=== PATIENT | female | born 1945 | race Caucasian/White ===

== ENCOUNTER → 2017-03-12 | Outpatient (CLI) | payer MEDICARE, OTHER ==
[2017-03-12 12:12] LABS: BASO % 0.9 % (0.0-1.0); EOS # 0.1 K/mm3 (0.0-0.50); EOS % 1.5 % (0.0-3.0); LARGE UNSTAINED CELL # 0.1 K/mm3 (0.0-0.4); LARGE UNSTAINED CELL % 2.2 % (0.0-4.0); LYMPH # 1.3 K/mm3 (1.5-4.5); LYMPH % 26.1 % (24.0-44.0); MEAN CORPUSCULAR HEMOGLOBIN 34.9 pg (27.0-33.0); MEAN CORPUSCULAR HGB CONC 32.3 g/dl (32.0-36.5); MONO # 0.2 K/mm3 (0.0-0.8); MONO % 5.3 % (0.0-5.0); NEUTROPHILS # 2.9 K/mm3 (1.8-7.7); PLATELET COUNT, AUTOMATED 112 k/mm3 (150-450); RED CELL DISTRIBUTION WIDTH 12.1 % (11.5-14.5); WHITE BLOOD COUNT 4.5 K/mm3 (4.0-10.0)
[2017-03-12 15:13] LABS: ALBUMIN 3.3 GM/DL (3.2-5.2); ALBUMIN/GLOBULIN RATIO 0.89 (1.00-1.93); ALKALINE PHOSPHATASE 89 U/L (45-117); ALT/SGPT 43 U/L (12-78); ANION GAP 7 MEQ/L (8-16); AST/SGOT 60 U/L (15-37); BILIRUBIN,TOTAL 0.9 MG/DL (0.2-1.0); BLOOD UREA NITROGEN 12 MG/DL (7-18); CALCIUM LEVEL 9.5 MG/DL (8.8-10.2); CARBON DIOXIDE LEVEL 30 MEQ/L (21-32); CHLORIDE LEVEL 104 MEQ/L (98-107); CHOLESTEROL LEVEL 250 MG/DL (<200); CREATININE FOR GFR 0.77 MG/DL (0.55-1.02); GLOMERULAR FILTRATION RATE > 60.0 (>45); GLUCOSE, FASTING 95 MG/DL (80-110); POTASSIUM SERUM 4.5 MEQ/L (3.5-5.1); SODIUM LEVEL 141 MEQ/L (136-145); T UPTAKE 35 % (30-39); THYROXINE (T4) 9.6 UG/DL (4.5-12.0); TRIGLYCERIDES LEVEL 76 MG/DL (<150)
== END ==
LOC: M WUC 08:42
PROVIDERS: ATTEND Psychiatry & Neurology Psychiatry
DX: Z79.899 Other long term (current) drug therapy (principal); F39 Unspecified mood [affective] disorder

== ENCOUNTER → 2017-05-15 | Outpatient (REF) | payer MEDICARE, OTHER ==
[~2017-05-15] MED LIST: AMBI10TA PO; CHLO125TA; CHLO25TA PO; DULO1CAP2; DULO1CAP2 PO; ESCI10TA2; FOLI1TAB4 PO; LOMO2.5T PO; LORA0.5T11; LORA0.5T11 PO; OMEP20CA3; OMEP40CA2; OMEP40CA2 PO; ONDA4TAB5; OXAZ10CA3 PO; THIA100TA PO; TRAZ50TA11; TRAZ50TA11 PO; VAGI10TA PV; ZOFR20TA PO; ZOLP10TA2
[2017-05-15 18:50] LABS: INR 1.02
[2017-05-15 18:55] LABS: FOLATE 6.1 NG/ML
== END ==
LOC: M LAB REF 12:06
PROVIDERS: ATTEND Internal Medicine
DX: Z98.84 Bariatric surgery status (principal); R74.8 Abnormal levels of other serum enzymes; R42 Dizziness and giddiness; Z79.01 Long term (current) use of anticoagulants

== ENCOUNTER 2017-06-14 09:51 | Inpatient (IN) | payer MEDICARE, OTHER ==
[~2017-06-14] VITALS: Ht 167.6 cm; Wt 89.1 kg
[2017-06-14] MEDS ORDERED: LORA0.5T11 (10:06)
[2017-06-14] MEDS ORDERED: CHLO125TA (10:06)
[2017-06-14] MEDS ORDERED: TRAZ50TA11 (10:06)
[2017-06-14] MEDS ORDERED: OMEP40CA2 (10:06)
[2017-06-14] MEDS ORDERED: OMEP20CA3 (10:06)
[2017-06-14] MEDS ORDERED: ONDA4TAB5 (10:06)
[2017-06-14] MEDS ORDERED: DULO1CAP2 (10:06)
[2017-06-14] MEDS ORDERED: ZOLP10TA2 (10:06)
[2017-06-14] MEDS ORDERED: ESCI10TA2 (10:06)
[2017-06-14] MEDS ORDERED: NS 500 ML IV ONE ×2 (10:45→11:45)
[2017-06-14 10:55] LABS: BASO % 0.9 % (0.0-1.0); EOS % 0.7 % (0.0-3.0); IMMATURE GRANULOCYTE % 0.2 % (0-0); LYMPH # 1.1 10^3/uL (1.5-4.5); LYMPH % 23.6 % (24.0-44.0); MEAN CORPUSCULAR HEMOGLOBIN 35.3 pg (27.0-33.0); MEAN CORPUSCULAR HGB CONC 33.8 g/dl (32.0-36.5); MEAN CORPUSCULAR VOLUME 104.3 fl (80.0-96.0); MONO # 0.4 10^3/uL (0.0-0.8); NEUTROPHILS % 66.6 % (36.0-66.0); RED CELL DISTRIBUTION WIDTH 12.7 % (11.5-14.5); WHITE BLOOD COUNT 4.5 10^3/uL (4.0-10.0)
--- NOTE | 2017-06-14 11:03 | REP ---
CT Head without contrast HISTORY: Syncope COMPARISON: None Areas of decreased attenuation are present in the periventricular white matter. This represents small-vessel ischemic disease. There is no intraparenchymal hemorrhage, acute infarct, mass or midline shift. The ventricular system and cortical sulci as well as subarachnoid space in the posterior fossa are dilated consistent with minimal volume loss. There is no extra cerebral collection. There is no fracture. The visualized sinuses are clear. IMPRESSION: 1. Small vessel ischemic disease. 2. Minimal volume loss. Signed by Edwar Davis MD 06/14/2017 10:55 A
--- NOTE | 2017-06-14 11:19 | REP ---
CHEST, SINGLE VIEW: Single view of the chest was performed and compared to prior study of 12/05/2008. There is chronic elevation of the right hemidiaphragm with mild right basilar fibroatelectatic change. No acute infiltrate is seen. Heart is normal in size and the mediastinal silhouette is unremarkable. IMPRESSION: No acute pulmonary disease. Signed by Tristan Alexander MD 06/14/2017 07:50 P
[2017-06-14 11:26] LABS: ADD MORPHOLOGY? YES; PLATELET CLUMPS MODERATE AMT
[2017-06-14 11:35] LABS: ANION GAP 11 MEQ/L (8-16); BLOOD UREA NITROGEN 6 MG/DL (7-18); CALCIUM LEVEL 9.4 MG/DL (8.8-10.2); CARBON DIOXIDE LEVEL 27 MEQ/L (21-32); CHLORIDE LEVEL 97 MEQ/L (98-107); CREATININE FOR GFR 0.67 MG/DL (0.55-1.02); GLOMERULAR FILTRATION RATE > 60.0 (>45); GLUCOSE, FASTING 106 MG/DL (80-110); MAGNESIUM LEVEL 1.9 MG/DL (1.8-2.4); POTASSIUM SERUM 3.7 MEQ/L (3.5-5.1); SODIUM LEVEL 135 MEQ/L (136-145)
[2017-06-14] MEDS ORDERED: PANTOPRAZOLE 40MG INJ (PROTONIX) (C9113) IV ONE (12:30)
[2017-06-14] MEDS ORDERED: ONDANSETRON 4MG/2ML VIAL (J2405) IV ONE (12:30)
[2017-06-14 13:02] LABS: ALBUMIN/GLOBULIN RATIO 0.83 (1.00-1.93); ALKALINE PHOSPHATASE 121 U/L (45-117); ALT/SGPT 130 U/L (12-78); AST/SGOT 241 U/L (15-37); BILIRUBIN,DIRECT 0.8 MG/DL (0.0-0.2); BILIRUBIN,TOTAL 1.3 MG/DL (0.2-1.0); TOTAL PROTEIN 6.6 GM/DL (6.4-8.2)
[2017-06-14] MEDS ORDERED: TRAZ50TA11 PO (13:09)
[2017-06-14] MEDS ORDERED: VAGI10TA PV (13:09)
[2017-06-14] MEDS ORDERED: LORA0.5T11 PO (13:09)
[2017-06-14] MEDS ORDERED: DULO1CAP2 PO (13:09)
[2017-06-14] MEDS ORDERED: AMBI10TA PO (13:09)
[2017-06-14] MEDS ORDERED: OMEP40CA2 PO (13:09)
[2017-06-14] MEDS ORDERED: ZOFR20TA PO (13:09)
[2017-06-14] MEDS ORDERED: CHLO25TA PO (13:09)
[2017-06-14] MEDS ORDERED: LOMO2.5T PO (13:09)
[2017-06-14] MEDS ORDERED: ONDANSETRON 4 MG TAB (S0181) PO PRN (13:15)
--- NOTE | 2017-06-14 13:54 | HPEPDOC ---
[facility] Medical History & Physical Date of Admission Jun 14, 2017 History and Physical HISTORY AND PHYSICAL Date of admission: 06/14/2017 PCP: Dr. Brenna Castro Chief complaint: Fall HPI: 71-year-old female with depression, fibromyalgia, morbid obesity status post gastric bypass with Angie-en-Y in 2009, alcohol abuse, who presented to the emergency department after falling. She is accompanied by her , who reports that she fell at approximately 7 AM this morning and was not able to get up on her own. He helped her up, but she continued to be unsteady on her feet. She went back to bed and slept for several hours, and then woke up and fell again. He states that at that time she could not remember the first fall. They are unsure if she hit her head but they do not think she did, and they feel quite confident that she did not lose consciousness. The patient reports that her son approximately 2 months ago after a several year gonzalez of alcoholism and end-stage liver disease. She says that since then she has been having a difficult time sleeping, and she had 1 Ambien pill left, which she took last night. She and her also report that she drinks wine daily, and has been drinking 1-1/2 L of wine every day for the last 3-1/2 years. The reports that she has had a slight increase in her intake since her son . The also reports that she woke up at 4 AM this morning, and had several glasses of wine at that time. Additionally, the patient reports nausea, vomiting, and dry heaves for the last several months that have been almost daily. She states that in the last 24 hours she has had dry heaves and has hardly been able to eat anything. Past medical history: depression, fibromyalgia, morbid obesity status post gastric bypass with Angie-en-Y in 2009, alcohol abuse Past surgical history: Angie-en-Y, left total knee arthroplasty, BTL, tonsillectomy Family history: Alcoholism, obesity, cirrhosis, lung cancer, Alex's, CVA, CAD Social history: The patient currently lives with her . She is a retired school nurse. She has never smoked any tobacco nor does she use drugs. She reports regular, daily, heavy alcohol use. Allergies: Hydromorphone Review of systems: General: Negative for fever, positive for chills Eyes: Negative for vision changes and ocular discharge ENT: Negative for sore throat and nose bleed Cardiovascular: Negative for chest pain and palpitations Respiratory: Negative for shortness of breath, positive for occasional cough GI: Positive for nausea and dry heaves, negative for diarrhea, constipation, dark or black stool Musculoskeletal: Negative for neck and back pain Skin: Negative for rash Neuro: Positive for dizziness, negative for headache, numbness, tingling Psych: Positive for depression, negative for suicidal ideation Endocrine: Negative for polyuria : Negative for dysuria Heme: Negative for bruising and bleeding Home meds: See below Physical exam: Vital signs: Vital Sign - Last 24 Hours 06/14/17 06/14/17 06/14/17 06/14/17 09:52 10:44 10:51 11:01 Temp 97.0 Pulse 92 108 Resp 18 B/P (MAP) 128/72 (90) 134/69 (90) Pulse Ox 96 98 O2 Delivery Room Air Room Air 06/14/17 06/14/17 06/14/17 06/14/17 11:06 11:16 11:22 11:31 Temp 96.1 Pulse 124 Resp 16 B/P (MAP) 102/56 (71) 154/86 (108) Pulse Ox 96 96 O2 Delivery Room Air Room Air 06/14/17 06/14/17 06/14/17 06/14/17 11:40 11:46 12:01 12:16 Pulse 70 60 56 96 84 122 B/P (MAP) 105/56 (72) 125/67 (86) 118/69 (85) 138/76 (96) 112/67 (82) 92/51 (65) Pulse Ox 98 98 98 06/14/17 06/14/17 12:46 13:01 Pulse Ox 97 98 Gen.: awake, alert, no acute distress Eyes: Extraocular movements intact, normal sclera ENT: Moist mucous membranes Cardiovascular: RRR, no murmurs rubs or gallops Lungs: clear to auscultation bilaterally, no rales, rhonchi, or wheeze Abdomen: Soft, NT/ND, normal BS Musculoskeletal: normal range of motion Extremities: 2+ peripheral edema in the right lower extremity which the patient states is chronic; pedal pulses intact bilaterally Neuro: alert and oriented 3, normal speech, no focal deficits, 5 out of 5 strength in all extremities, intact finger to nose, no facial droop, no arm drift Psych: Intermittently tearful, denies SI Labs and radiology: See below CBC and BMP are unremarkable; no gap T bili, AST, ALT, alkaline phosphatase are all elevated Lactic acid 4.1 EtOH level is elevated CT of the head is negative for acute findings Chest x-ray is negative for acute findings UA does not have any evidence of ketones or infection Assessment and plan: 71-year-old female with depression, fibromyalgia, morbid obesity status post gastric bypass with Angie-en-Y in 2009, alcohol abuse, who presented to the emergency department after falling. She is found to have an elevated lactate, and she is also seeking acute detox from her alcohol dependence. 1. Fall: I suspect this is secondary to a combination of the Ambien that she took last night, as well as her regular heavy drinking and the several glasses of wine that she consumed at 4 AM, 3 hours prior to her fall. CT of the head is unremarkable. She denies any loss of consciousness or prodromal symptoms. We will monitor orthostatics on her. 2. Elevated lactate: I suspect this is secondary to her alcohol consumption. She does not show evidence of ketoacidosis at this time she does not have a gap and there are no ketones in her urine. We will continue to hydrate her, after she receives a banana bag. We will recheck her lactate in several hours. 3. Alcohol abuse: Patient has good insight into her alcohol abuse and tells me that she is seeking acute detox with eventual alcohol rehabilitation. Her is at the bedside and is very supportive and encouraging of this. At this time, after she receives a banana bag, she'll be started on daily thiamine , folate, multivitamin. We also started on scheduled Serax with as needed Ativan for breakthrough symptoms. We will consult case management so that they can discuss different options in the area with the patient and her family regarding eventual rehabilitation. Her LFTs are currently elevated, which I suspect is secondary to her long-standing alcohol abuse. We will continue to monitor these while she is here. 4. Depression and fibromyalgia: Continue home Cymbalta and trazodone. We are holding home Ativan in light of the Serax and breakthrough Ativan that she will receive. We are also holding home Ambien. At this time, I would recommend that this is not restarted in the future for her given her having episodes where she does not remember what has happened when she takes that. 5. 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 At this time, the patient denies any dark or black stool, as well as any blood in her emesis. She'll receive supportive care with antiemetics and PPI. She will eventually benefit from an outpatient EGD that can be arranged at discharge. 6. Right lower extremity swelling: The patient states this is chronic in nature , but she is unable to offer an explanation as to why this occurs. We will evaluate with a right lower extremity Doppler to rule out DVT. DVT prophylaxis: SCDs Dispo: place in observation on the service of Dr. Rojo CODE STATUS: Full Code Vital Signs Vital Signs Date Time Temp Pulse Resp B/P (MAP) Pulse Ox O2 Delivery O2 Flow Rate FiO2 06/14/17 13:01 98 06/14/17 12:16 96 138/76 (96) 06/14/17 11:31 Room Air 06/14/17 11:22 96.1 16 Laboratory Data Labs 24H Laboratory Tests 2 06/14/17 10:41: White Blood Count 4.5, Red Blood Count 3.97L, Hemoglobin 14.0, Hematocrit 41.4, Mean Corpuscular Volume 104.3H, Mean Corpuscular Hemoglobin 35.3H, Mean Corpuscular Hemoglobin Concent 33.8, Red Cell Distribution Width 12.7, Platelet Count , Neutrophils (%) (Auto) 66.6H, Lymphocytes (%) (Auto) 23.6L, Monocytes (% ) (Auto) 8.0H, Eosinophils (%) (Auto) 0.7, Basophils (%) (Auto) 0.9, Neutrophils # (Auto) 3.0, Lymphocytes # (Auto) 1.1L, Monocytes # (Auto) 0.4, Eosinophils # (Auto) 0.0, Basophils # (Auto) 0.0, Immature Granulocyte # (Auto) 0.0, Nucleated Red Blood Cells % (auto) 0.0, Platelet Estimate NORMAL, Clumped Platelets MODERATE AMT, Anion Gap 11, Glomerular Filtration Rate > 60.0, Lactic Acid Level 4.1*H, Blood Urea Nitrogen 6L, Creatinine 0.67, Sodium Level 135L, Potassium Level 3.7, Chloride Level 97L, Carbon Dioxide Level 27, Calcium Level 9.4, Magnesium Level 1.9, Aspartate Amino Transf (AST/SGOT) 241H, Alanine Aminotransferase (ALT/SGPT) 130H, Alkaline Phosphatase 121H, Total Bilirubin 1.3H, Direct Bilirubin 0.8H, Total Protein 6.6, Albumin 3.0L, Albumin/Globulin Ratio 0.83L, Thyroid Stimulating Hormone (TSH) 1.900, Ethyl Alcohol Level 0.154H 06/14/17 13:02: Urine Appearance CLEAR, Urine Color YELLOW, Urine pH 6.0, Urine Specific [place] 1.004, Urine Protein NEGATIVE, Urine Glucose (UA) NEGATIVE, Urine Ketones NEGATIVE, Urine Urobilinogen 4.0H, Urine Bilirubin NEGATIVE, Urine Leukocyte Esterase NEGATIVE, Urine Blood NEGATIVE, Urine Nitrite NEGATIVE, Urine WBC (Auto) 1, Urine RBC (Auto) 0, Urine Hyaline Casts (Auto) 0, Urine Bacteria (Auto) 1+H, Urine Squamous Epithelial Cells 0, Urine Sperm (Auto) CBC/BMP Laboratory Tests 06/14/17 10:41 Red Blood Count 3.97 L, Mean Corpuscular Volume 104.3 H, Mean Corpuscular Hemoglobin 35.3 H, Mean Corpuscular Hemoglobin Concent 33.8, Red Cell Distribution Width 12.7, Neutrophils (%) (Auto) 66.6 H, Lymphocytes (%) (Auto) 23.6 L, Monocytes (%) (Auto) 8.0 H, Eosinophils (%) (Auto) 0.7, Basophils (%) ( Auto) 0.9, Neutrophils # (Auto) 3.0, Lymphocytes # (Auto) 1.1 L, Monocytes # ( Auto) 0.4, Eosinophils # (Auto) 0.0, Basophils # (Auto) 0.0, Calcium Level 9.4 Home Medications Scheduled Chlorthalidone (Chlorthalidone) 25 Mg Tab, 25 MG PO DAILY Duloxetine Hcl (Duloxetine HCl) 30 Mg Cap, 30 MG PO DAILY Omeprazole (Omeprazole) 40 Mg Cap, 40 MG PO BID Trazodone HCl (Trazodone HCl) 50 Mg Tab, 150 MG PO QHS Scheduled PRN Diphenoxylate/Atropine (Lomotil 2.5-0.025 mg) 1 Tab Tab, 1 TAB PO PRN PRN for DIARRHEA Estradiol Hemihydrate (Vagifem) 10 Mcg Tab, 10 MCG PV 2XW PRN for IRRITATION Lorazepam (Lorazepam) 0.5 Mg Tab, 0.5 MG PO TID PRN for ANXIETY Ondansetron HCl (Zofran) 4 Mg Tab, 8 MG PO TID PRN for NAUSEA OR VOMITING Zolpidem Tartrate (Ambien) 10 Mg Tab, 10 MG PO QHS PRN for SLEEP Allergies Coded Allergies: Hydromorphone (Verified Allergy, Severe, resp arrest, 06/14/17) NILDA EVANS Jun 14, 2017 13:54
--- NOTE | 2017-06-14 14:21 | REP ---
Right lower extremity Duplex Doppler venous ultrasound: Real time compression and duplex Doppler interrogation of the right lower extremity deep venous system is performed. The right common femoral, superficial femoral and popliteal veins are fully compressible with transducer pressure and demonstrate normal spontaneous and phasic flow, without evidence of deep venous thrombosis. Impression: No evidence of deep venous thrombosis of the right lower extremity femoral popliteal venous system. Signed by Tristan Alexander MD 06/14/2017 02:13 P
[2017-06-14] MEDS ORDERED: MULTIVITAMIN -ADULT INJECTION 10 ML, THIAMINE INJection 100 MG, FOLIC ACID 1 MG in NS 1... IV ONE (15:00)
[2017-06-14] MEDS: DULoxetine 30 MG CAP (CYMBALTA) PO SCH (15:57)
[2017-06-14] MEDS: OXAZEPAM 10 MG CAP PO SCH ×2 (15:57→21:38)
[2017-06-14 16:00] VITALS: BP 126/52
[2017-06-14] MEDS: CHLORTHALIDONE 25 MG TAB PO SCH (17:41)
[2017-06-14] MEDS: LORazepam 2 MG/ML VIAL (J2060) IV PRN ×3 (18:06→23:31)
[2017-06-14] MEDS: ONDANSETRON 4MG/2ML VIAL (J2405) IV PRN (18:06)
[2017-06-14] MEDS: traZODone 50 MG TAB PO SCH (20:24)
[2017-06-14] MEDS: OMEPRAZOLE 20 MG CAP PO SCH (20:24)
[2017-06-14 20:25] VITALS: BP 101/7
--- NOTE | 2017-06-14 20:49 | ECGEPIP ---
Stationary ECG Study [facility] - ED Test Date: 2017-06-14 Pat Name: FLORIDA AQUINO Department: Room: - Gender: F Freedom Of Information Officer: URSULA : 1945 Requested By: KALEB Doe Order Number: [id number] Reading MD: Isis Richmond Measurements Intervals [place] Rate: 55 P: 61 [place]: 134 QRS: 14 QRSD: 106 T: 27 QT: 473 QTc: 455 Interpretive Statements SINUS BRADYCARDIA POSSIBLE LEFT ATRIAL ENLARGEMENT NSTTW ABNORMALITY PROLONGED QTC NO PRIOR FOR COMPARISON Electronically Signed On 06-14-2017 20:49:47 EDT by Isis Richmond
[2017-06-14 22:53] VITALS: BP_SYST 106; BP_SYST 110; BP_SYST 112; BP_DIAS 74; BP_DIAS 80
[2017-06-15] VITALS (9 sets, daily range): BP systolic 91–137; BP diastolic 52–72
[2017-06-15] MEDS: NS 1,000 ML IV SCH ×2 (01:05→11:09)
[2017-06-15] MEDS: OXAZEPAM 10 MG CAP PO SCH ×3 (05:35→20:38)
[2017-06-15 07:08] LABS: ALBUMIN 2.4 GM/DL (3.2-5.2); ALBUMIN/GLOBULIN RATIO 0.73 (1.00-1.93); ALKALINE PHOSPHATASE 99 U/L (45-117); ALT/SGPT 93 U/L (12-78); ANION GAP 5 MEQ/L (8-16); AST/SGOT 170 U/L (15-37); BILIRUBIN,TOTAL 1.5 MG/DL (0.2-1.0); BLOOD UREA NITROGEN 8 MG/DL (7-18); CALCIUM LEVEL 8.4 MG/DL (8.8-10.2); CARBON DIOXIDE LEVEL 31 MEQ/L (21-32); CHLORIDE LEVEL 104 MEQ/L (98-107); GLOMERULAR FILTRATION RATE > 60.0 (>45); GLUCOSE, FASTING 90 MG/DL (80-110); MAGNESIUM LEVEL 1.8 MG/DL (1.8-2.4); POTASSIUM SERUM 3.2 MEQ/L (3.5-5.1); SODIUM LEVEL 140 MEQ/L (136-145); TOTAL PROTEIN 5.7 GM/DL (6.4-8.2)
[2017-06-15 07:11] LABS: BASO % 0.6 % (0.0-1.0); EOS # 0.1 10^3/uL (0.0-0.50); EOS % 2.1 % (0.0-3.0); IMMATURE GRANULOCYTE % 0.6 % (0-0); LYMPH # 0.9 10^3/uL (1.5-4.5); LYMPH % 27.2 % (24.0-44.0); MEAN CORPUSCULAR HEMOGLOBIN 34.8 pg (27.0-33.0); MEAN CORPUSCULAR HGB CONC 32.7 g/dl (32.0-36.5); MEAN CORPUSCULAR VOLUME 106.5 fl (80.0-96.0); MONO # 0.4 10^3/uL (0.0-0.8); MONO % 10.9 % (0.0-5.0); NEUTROPHILS # 1.9 10^3/uL (1.8-7.7); NEUTROPHILS % 58.6 % (36.0-66.0); RED CELL DISTRIBUTION WIDTH 12.9 % (11.5-14.5); WHITE BLOOD COUNT 3.3 10^3/uL (4.0-10.0)
[2017-06-15 07:13] LABS: ADD MORPHOLOGY? YES
[2017-06-15 07:50] LABS: PLATELET CLUMPS SMALL AMT
[2017-06-15] MEDS ORDERED: PRENATAL VITAMINS CHEWABLE TABLET PO SCH (09:00)
[2017-06-15] MEDS: DULoxetine 30 MG CAP (CYMBALTA) PO SCH (09:00)
[2017-06-15] MEDS: OMEPRAZOLE 20 MG CAP PO SCH ×2 (09:00→20:38)
[2017-06-15] MEDS: MULTIVITAMINS/MINERALS THERAP 1 TAB PO SCH (09:00)
[2017-06-15] MEDS: THIAMINE 100 MG TAB PO SCH (09:00)
[2017-06-15] MEDS: FOLIC ACID 1 MG TAB PO SCH (09:00)
[2017-06-15] MEDS: CHLORTHALIDONE 25 MG TAB PO SCH (09:01)
[2017-06-15] MEDS ORDERED: POTASSIUM CHLORIDE 10 MEQ SR TABLET PO ONE (10:45)
[2017-06-15] MEDS: LORazepam 2 MG/ML VIAL (J2060) IV PRN ×2 (11:11→21:52)
[2017-06-15] MEDS: traZODone 50 MG TAB PO SCH (20:38)
--- NOTE | 2017-06-15 20:40 | IPN ---
DATE: 06/15/2017 Ms. Flores is feeling a little better this morning, a little less shaky. She is somewhat emotional about the events that have brought her into the hospital. She is looking to seek help and is considering inpatient rehabilitation. Temperature is 98.4, pulse 90, respiratory rate 18, blood pressure 112/62, 95% on room air. Intake and output are notable for a positive fluid balance of 1840. She is awake, appropriately interactive, pleasantly conversant, somewhat tearful at times. Mucous membranes are moist. Neck is supple, thin. Breathing is symmetrical. I:E ratio is 1:3. No wheezes, rales, or rhonchi. No costovertebral angle (CVA) tenderness. Heart is borderline tachycardic. Normal S1, S2. Radial pulses are 2+, capillary refill is less than two seconds. Abdomen is soft, doughy, nontender. LABORATORY DATA: White cell count 3.3, hemoglobin 11.2, and platelets clumping. Sodium is 140, potassium is 3.2, LFTs are trending downward. ASSESSMENT: This is a 71-year-old status post fall with history of alcohol abuse and pending withdrawal. PLAN: 1. Fall. This is most likely related to a combination of Ambien and wine. We will monitor her clinically in the hospital. 2. Elevated lactate level. This is resolving. 3. We did discuss alcohol cessation at length and the patient would like referral for inpatient program. She would like a program where she is able to talk with her as they have been 50 years this week. 4. The patient has a history of depression and fibromyalgia which certainly complicates her treatment. 5. Nausea and vomiting have resolved. 6. The patient has right lower extremity swelling. Lower extremity Doppler shows no evidence of DVT. 7. The patient has hyponatremia.
[2017-06-15] MEDS: ONDANSETRON 4MG/2ML VIAL (J2405) IV PRN (21:55)
[2017-06-16 00:21] VITALS: BP 106/55
[2017-06-16 05:25] VITALS: BP 125/68
[2017-06-16] MEDS: OXAZEPAM 10 MG CAP PO SCH ×3 (05:37→21:03)
[2017-06-16 06:54] LABS: BASO % 0.7 % (0.0-1.0); EOS # 0.1 10^3/uL (0.0-0.50); IMMATURE GRANULOCYTE % 0.5 % (0-0); LYMPH # 0.8 10^3/uL (1.5-4.5); LYMPH % 19.4 % (24.0-44.0); MEAN CORPUSCULAR HGB CONC 33.2 g/dl (32.0-36.5); MEAN CORPUSCULAR VOLUME 105.2 fl (80.0-96.0); MONO # 0.4 10^3/uL (0.0-0.8); MONO % 9.2 % (0.0-5.0); NEUTROPHILS # 2.8 10^3/uL (1.8-7.7); NEUTROPHILS % 68.2 % (36.0-66.0); RED CELL DISTRIBUTION WIDTH 12.6 % (11.5-14.5)
[2017-06-16 07:05] LABS: PLTBLUE- EDTA FREE CALC 108 K/mm3 (172-450); PLTBLUE- EDTA FREE MACHINE 98 10^3/uL (172-450)
[2017-06-16 07:20] LABS: ALBUMIN 2.5 GM/DL (3.2-5.2); ALBUMIN/GLOBULIN RATIO 0.71 (1.00-1.93); ALKALINE PHOSPHATASE 98 U/L (45-117); ALT/SGPT 85 U/L (12-78); ANION GAP 7 MEQ/L (8-16); AST/SGOT 125 U/L (15-37); BILIRUBIN,TOTAL 1.2 MG/DL (0.2-1.0); BLOOD UREA NITROGEN 7 MG/DL (7-18); CALCIUM LEVEL 9.2 MG/DL (8.8-10.2); CARBON DIOXIDE LEVEL 28 MEQ/L (21-32); CHLORIDE LEVEL 104 MEQ/L (98-107); CREATININE FOR GFR 0.54 MG/DL (0.55-1.02); GLOMERULAR FILTRATION RATE > 60.0 (>45); GLUCOSE, FASTING 103 MG/DL (80-110); MAGNESIUM LEVEL 1.7 MG/DL (1.8-2.4); PERCENT SATURATION 45.7 % (13.2-45.0); POTASSIUM SERUM 3.4 MEQ/L (3.5-5.1); SODIUM LEVEL 139 MEQ/L (136-145); TOTAL IRON BINDING CAPACITY 184 UG/DL (250-450)
[2017-06-16] MEDS ORDERED: NS 500 ML IV ONE (08:45)
[2017-06-16 09:00] VITALS: BP 125/68
[2017-06-16] MEDS ORDERED: POTASSIUM CHLORIDE 10 MEQ SR TABLET PO ONE (09:00)
[2017-06-16] MEDS ORDERED: INFLUENZA VIRUS VACCINE HIGH DOSE 0.5 ML SYRINGE (90662) IM ONE (09:00)
[2017-06-16] MEDS ORDERED: MAG SULF 1GM/100ML (MAG RUN) 1 GM in APPROPRIATE DILUENT 1 EA IV ONE (09:00)
[2017-06-16] MEDS: OMEPRAZOLE 20 MG CAP PO SCH ×2 (09:18→21:03)
[2017-06-16] MEDS: THIAMINE 100 MG TAB PO SCH (09:18)
[2017-06-16] MEDS: CHLORTHALIDONE 25 MG TAB PO SCH (09:19)
[2017-06-16] MEDS: DULoxetine 30 MG CAP (CYMBALTA) PO SCH (09:19)
[2017-06-16] MEDS: MULTIVITAMINS/MINERALS THERAP 1 TAB PO SCH (09:19)
[2017-06-16] MEDS: FOLIC ACID 1 MG TAB PO SCH (09:19)
[2017-06-16 09:56] LABS: FERRITIN 588 NG/ML (8-252)
[2017-06-16] MEDS: LORazepam 2 MG/ML VIAL (J2060) IV PRN ×2 (10:43→21:03)
[2017-06-16 14:00] VITALS: BP 134/73
[2017-06-16 20:02] VITALS: BP 140/66
[2017-06-16 22:00] VITALS: BP 134/73
[2017-06-16] MEDS: traZODone 50 MG TAB PO SCH (22:22)
[2017-06-16] MEDS ORDERED: CHLORASEPTIC SPRAY MT PRN (23:45)
[2017-06-17] VITALS (8 sets, daily range): BP systolic 80–132; BP diastolic 48–70
--- NOTE | 2017-06-17 04:26 | IPN ---
DATE OF SERVICE: 06/16/2017 Ms. Flores is feeling slightly better today. She has no complaints of pain, chest pain, shortness of breath, is tolerating a diet. She is quite emotional about her current status, which is understandable. Today is her 50th anniversary. Temperature is 98.7, pulse 96, respiratory rate 18, blood pressure 125/68, 94% on room air. Intake and output (I and O) notable for a positive fluid balance of 192. One bowel movement noted yesterday. She is awake, appropriately interactive, pleasantly conversant. Breathing is symmetrical and rested. Heart is distant sounding. Abdomen is soft, doughy, nontender. White cell count 4, hemoglobin 12.1, and platelets of 108, EDTA free. BUN 7, creatinine 0.5, liver function tests are improving. A ferritin level is elevated, iron is normal. TIBC is low. My assessment is as follows: This is a 71-year-old with alcohol abuse pending withdrawal. Plan is as follows: 1. Patient had a fall at the time of her presentation related to a combination of Ambien and alcohol, is stable at this point. 2. Patient has history of alcohol use that has been going on for some time. She has had some tremor, has benefited from Serax and Ativan, is currently without tremor. Did not appear anxious, but does appear somewhat depressed. Continue with Serax as previously ordered. 3. The patient has depression and fibromyalgia which complicates her treatment. 4. Nausea and vomiting has resolved. She is tolerating diet. 5. The patient has chronic right lower extremity swelling. Doppler has been negative. 6. The patient's hyponatremia which was present at admission has resolved. 7. Patient has hypokalemia, which is repleted.
[2017-06-17] MEDS: OXAZEPAM 10 MG CAP PO SCH ×2 (05:26→20:23)
[2017-06-17 07:02] LABS: BASO % 0.3 % (0.0-1.0); EOS # 0.1 10^3/uL (0.0-0.50); EOS % 1.4 % (0.0-3.0); IMMATURE GRANULOCYTE % 0.6 % (0-0); LYMPH # 0.9 10^3/uL (1.5-4.5); LYMPH % 13.8 % (24.0-44.0); MEAN CORPUSCULAR HEMOGLOBIN 34.7 pg (27.0-33.0); MEAN CORPUSCULAR HGB CONC 33.2 g/dl (32.0-36.5); MEAN CORPUSCULAR VOLUME 104.3 fl (80.0-96.0); MONO # 0.5 10^3/uL (0.0-0.8); MONO % 7.8 % (0.0-5.0); NEUTROPHILS # 4.9 10^3/uL (1.8-7.7); NEUTROPHILS % 76.1 % (36.0-66.0); RED CELL DISTRIBUTION WIDTH 12.6 % (11.5-14.5); WHITE BLOOD COUNT 6.4 10^3/uL (4.0-10.0)
[2017-06-17 07:25] LABS: ALBUMIN 2.5 GM/DL (3.2-5.2); ALBUMIN/GLOBULIN RATIO 0.74 (1.00-1.93); ALKALINE PHOSPHATASE 94 U/L (45-117); ALT/SGPT 73 U/L (12-78); ANION GAP 8 MEQ/L (8-16); AST/SGOT 92 U/L (15-37); BILIRUBIN,TOTAL 1.2 MG/DL (0.2-1.0); BLOOD UREA NITROGEN 7 MG/DL (7-18); CALCIUM LEVEL 9.2 MG/DL (8.8-10.2); CARBON DIOXIDE LEVEL 28 MEQ/L (21-32); CHLORIDE LEVEL 101 MEQ/L (98-107); CREATININE FOR GFR 0.58 MG/DL (0.55-1.02); GLOMERULAR FILTRATION RATE > 60.0 (>45); GLUCOSE, FASTING 110 MG/DL (80-110); MAGNESIUM LEVEL 1.9 MG/DL (1.8-2.4); POTASSIUM SERUM 3.5 MEQ/L (3.5-5.1); SODIUM LEVEL 137 MEQ/L (136-145); TOTAL PROTEIN 5.9 GM/DL (6.4-8.2)
[2017-06-17] MEDS: CHLORTHALIDONE 25 MG TAB PO SCH (09:49)
[2017-06-17] MEDS: THIAMINE 100 MG TAB PO SCH (09:49)
[2017-06-17] MEDS: OMEPRAZOLE 20 MG CAP PO SCH ×2 (09:49→20:23)
[2017-06-17] MEDS: FOLIC ACID 1 MG TAB PO SCH (09:50)
[2017-06-17] MEDS: MULTIVITAMINS/MINERALS THERAP 1 TAB PO SCH (09:50)
[2017-06-17] MEDS: DULoxetine 30 MG CAP (CYMBALTA) PO SCH (09:50)
[2017-06-17] MEDS ORDERED: NS 500 ML IV ONE (11:00)
[2017-06-17] MEDS ORDERED: LORazepam 2 MG/ML VIAL (J2060) IV PRN (15:00)
--- NOTE | 2017-06-17 15:23 | IPN ---
DATE: 06/17/2017 SUBJECTIVE: Ms. Flores is feeling somewhat better today, perhaps a little bit less shaky. She did require some Ativan last night. No chest pain. No shortness of breath. Tolerating her diet, and her brought her hidalgo for their 50 anniversary. OBJECTIVE: VITAL SIGNS: Temperature is 98.4, pulse 87, respiratory rate 16, blood pressure 102/57, 92% on room air. INTAKE AND OUTPUT: Notable for negative fluid balance of minus 100. Two bowel movements yesterday. GENERAL: Is awake, appropriately interactive, pleasantly conversant, somewhat depressed appearing. HEENT: Mucous membranes are moist. NECK: Supple. LUNGS: Breathing is symmetrical. I:E ratio is 1:3. No wheezes, rales, or rhonchi. HEART: Regular rate and rhythm. Borderline tachycardic. ABDOMEN: Soft, doughy, nontender. LABORATORY DATA: White cell count 6.4, hemoglobin 12.1, platelets are clumped. Creatinine 0.5. Liver function tests are improving. ASSESSMENT: This is a 71-year-old with alcohol abuse, pending withdrawal. PLAN: 1. The patient had fallen at home at the time of her presentation related to a combination of Ambien and alcohol. Appears stable on her feet at this point. 2. Patient has orthostasis. Unfortunately, did receive of antihypertensive this morning. Will receive half fluid bolus, and then additional intravenous (IV) fluid today. 3. Patient has no gross symptoms of physical withdrawal. Will wean Serax. 4. The patient has depression and fibromyalgia which complicates her treatment. 5. The patient has chronic right lower extremity swelling. Doppler is negative. 6. The patient's hyponatremia which was present at admission has resolved. 7. The patient's hypokalemia has resolved. 8. The patient's hypomagnesemia has resolved. 9. The patient would like inpatient alcohol treatment. Is interested in finding a facility that caters to her demographic range. This will need to be discussed tomorrow at multidisciplinary rounds. We did discuss the fact that she will likely not be able to go directly from the hospital to that setting, and may require Serax at the time of discharge for further weaning. CORWIN
[2017-06-17] MEDS: traZODone 50 MG TAB PO SCH (20:22)
[2017-06-17] MEDS: ONDANSETRON 4MG/2ML VIAL (J2405) IV PRN (22:40)
[2017-06-18 06:00] VITALS: BP_SYST 112; BP_SYST 74; BP_SYST 89; BP_SYST 97; BP_DIAS 45; BP_DIAS 55; BP_DIAS 57
[2017-06-18] MEDS ORDERED: POTASSIUM CHLORIDE 10 MEQ SR TABLET PO ONE (06:45)
[2017-06-18] MEDS: LR 1,000 ML IV SCH ×2 (06:59→17:30)
[2017-06-18 07:32] LABS: BASO % 0.5 % (0.0-1.0); EOS # 0.1 10^3/uL (0.0-0.50); EOS % 0.9 % (0.0-3.0); IMMATURE GRANULOCYTE % 0.6 % (0-0); LYMPH # 1.3 10^3/uL (1.5-4.5); LYMPH % 15.4 % (24.0-44.0); MEAN CORPUSCULAR HEMOGLOBIN 35.7 pg (27.0-33.0); MEAN CORPUSCULAR HGB CONC 33.5 g/dl (32.0-36.5); MONO # 0.6 10^3/uL (0.0-0.8); MONO % 6.5 % (0.0-5.0); NEUTROPHILS # 6.6 10^3/uL (1.8-7.7); NEUTROPHILS % 76.1 % (36.0-66.0); RED CELL DISTRIBUTION WIDTH 12.8 % (11.5-14.5); WHITE BLOOD COUNT 8.6 10^3/uL (4.0-10.0)
[2017-06-18 07:58] LABS: ALBUMIN 2.7 GM/DL (3.2-5.2); ALBUMIN/GLOBULIN RATIO 0.64 (1.00-1.93); ALKALINE PHOSPHATASE 104 U/L (45-117); ALT/SGPT 63 U/L (12-78); ANION GAP 6 MEQ/L (8-16); AST/SGOT 67 U/L (15-37); BILIRUBIN,TOTAL 1.4 MG/DL (0.2-1.0); BLOOD UREA NITROGEN 8 MG/DL (7-18); CALCIUM LEVEL 9.5 MG/DL (8.8-10.2); CARBON DIOXIDE LEVEL 31 MEQ/L (21-32); CHLORIDE LEVEL 100 MEQ/L (98-107); GLOMERULAR FILTRATION RATE > 60.0 (>45); GLUCOSE, FASTING 107 MG/DL (80-110); MAGNESIUM LEVEL 1.8 MG/DL (1.8-2.4); POTASSIUM SERUM 3.6 MEQ/L (3.5-5.1); SODIUM LEVEL 137 MEQ/L (136-145); TOTAL PROTEIN 6.9 GM/DL (6.4-8.2)
[2017-06-18 08:11] LABS: MEAN CORPUSCULAR VOLUME 106.6 fl (80.0-96.0)
[2017-06-18 08:12] LABS: ADD MANUAL DIFFER NO; ADD MORPHOLOGY? YES; DIFF SLIDE NUMBER 29
[2017-06-18 08:13] LABS: PLATELET CLUMPS MODERATE AMT
[2017-06-18] MEDS: DULoxetine 30 MG CAP (CYMBALTA) PO SCH (09:07)
[2017-06-18] MEDS: THIAMINE 100 MG TAB PO SCH (09:07)
[2017-06-18] MEDS: FOLIC ACID 1 MG TAB PO SCH (09:07)
[2017-06-18] MEDS: OXAZEPAM 10 MG CAP PO SCH (09:07)
[2017-06-18] MEDS: OMEPRAZOLE 20 MG CAP PO SCH ×2 (09:07→20:44)
[2017-06-18] MEDS: MULTIVITAMINS/MINERALS THERAP 1 TAB PO SCH (09:07)
--- NOTE | 2017-06-18 11:33 | IPNPDOC ---
Subjective Date Seen The patient was seen on 06/18/17. Subjective Chief Complaint/HPI The patient is a 71-year-old female admitted with a reason for visit of FALL. Events since last encounter feeling better today , has been out of bed to bathroom did not have any dizziness or light headedness. Denies any tremor, denies any nausea or vomiting or abdominal pain. Objective Physical Examination General Exam: Positive: Alert, Cooperative, No Acute Distress Eye Exam: Positive: PERRLA, Conjunctiva & lids normal, EOMI, Negative: Sclera icteric ENT Exam: Positive: Atraumatic, Mucous membr. moist/pink, Pharynx Normal Neck Exam: Positive: Supple, Negative: JVD, thyromegaly Chest Exam: Positive: Clear to auscultation, Normal air movement Heart Exam: Positive: Rate Normal, Regular Rhythm, Normal S1, Normal S2, Negative: Murmurs, Rubs Abdomen Exam: Positive: Normal bowel sounds, Soft, Negative: Tenderness, Hepatospenomegaly Extremity Exam: Positive: Edema (trace on the right. ), Normal pulses, Negative: Clubbing, Cyanosis Skin Exam: Positive: Nl turgor and temperature, Negative: Rash, Breakdown Assessment /Plan Problems (1) Orthostatic hypotension Status: Acute Problem Text: will continue with IVF fluids (2) Alcohol intoxication Status: Acute Problem Text: history of alcohol abuse was intoxicated when came in . had mild withdrawal features now no further withdrawal will dc ativan start weaning serax. continue folate and thiamine. (3) Alcoholic hepatitis Status: Acute Response to Treatment: Improving Problem Text: lfts improved. (4) Fall Status: Acute Problem Text: no trauma sustained. (5) Fibromyalgia Status: Chronic (6) Gastric bypass status for obesity Status: Chronic (7) Depression Status: Chronic Plan/VTE VTE Prophylaxis Ordered?: Yes VS, I&O, 24H, Fishbone Vital Signs/I&O Vital Signs Date Time Temp Pulse Resp B/P (MAP) Pulse Ox O2 Delivery O2 Flow Rate FiO2 06/18/17 06:00 88 97/57 (70) 106 89/57 (68) 135 74/45 (55) 06/18/17 06:00 96.5 15 94 Room Air I&O- Last 24 Hours up to 6 AM 06/19/17 06:00 Intake Total 360 ml Output Total 350 ml Balance 10 ml Laboratory Data 24H LABS Laboratory Tests 2 06/18/17 07:08: Immature Granulocyte % (Auto) 0.6H, White Blood Count 8.6, Red Blood Count 3.64L , Hemoglobin 13.0, Hematocrit 38.8, Mean Corpuscular Volume 106.6H, Mean Corpuscular Hemoglobin 35.7H, Mean Corpuscular Hemoglobin Concent 33.5, Red Cell Distribution Width 12.8, Platelet Count , Neutrophils (%) (Auto) 76.1H, Lymphocytes (%) (Auto) 15.4L, Monocytes (%) (Auto) 6.5H, Eosinophils (%) (Auto) 0.9, Basophils (%) (Auto) 0.5, Neutrophils # (Auto) 6.6, Lymphocytes # (Auto) 1.3L, Monocytes # (Auto) 0.6, Eosinophils # (Auto) 0.1, Basophils # (Auto) 0.0, Immature Granulocyte # (Auto) 0.1H, Nucleated Red Blood Cells % (auto) 0.0, Platelet Estimate INVALID, Clumped Platelets MODERATE AMT, Macrocytosis 1+, Anion Gap 6L, Glomerular Filtration Rate > 60.0, Blood Urea Nitrogen 8, Creatinine 0.70, Sodium Level 137, Potassium Level 3.6, Chloride Level 100, Carbon Dioxide Level 31, Calcium Level 9.5, Aspartate Amino Transf (AST/SGOT) 67H, Alanine Aminotransferase (ALT/SGPT) 63, Alkaline Phosphatase 104, Total Bilirubin 1.4H, Total Protein 6.9, Albumin 2.7L, Magnesium Level 1.8, Albumin/ Globulin Ratio 0.64L CBC/BMP Laboratory Tests 06/18/17 07:08 Red Blood Count 3.64 L, Mean Corpuscular Volume 106.6 H, Mean Corpuscular Hemoglobin 35.7 H, Mean Corpuscular Hemoglobin Concent 33.5, Red Cell Distribution Width 12.8, Neutrophils (%) (Auto) 76.1 H, Lymphocytes (%) (Auto) 15.4 L, Monocytes (%) (Auto) 6.5 H, Eosinophils (%) (Auto) 0.9, Basophils (%) ( Auto) 0.5, Neutrophils # (Auto) 6.6, Lymphocytes # (Auto) 1.3 L, Monocytes # ( Auto) 0.6, Eosinophils # (Auto) 0.1, Basophils # (Auto) 0.0, Calcium Level 9.5, Aspartate Amino Transf (AST/SGOT) 67 H, Alanine Aminotransferase (ALT/SGPT) 63, Alkaline Phosphatase 104, Total Bilirubin 1.4 H, Total Protein 6.9, Albumin 2.7 L ORQUIDEA CARMONA MD Jun 18, 2017 11:33
[2017-06-18 14:50] VITALS: BP_SYST 101; BP_SYST 11; BP_SYST 132; BP_SYST 144; BP_DIAS 58; BP_DIAS 64; BP_DIAS 66
[2017-06-18] MEDS: OXAZEPAM 10 MG CAP PO PRN (17:30)
[2017-06-18] MEDS: OXAZEPAM 15 MG CAP PO SCH (20:44)
[2017-06-18] MEDS: traZODone 50 MG TAB PO SCH (20:44)
[2017-06-18 21:15] VITALS: BP_SYST 108; BP_SYST 124; BP_SYST 134; BP_DIAS 58; BP_DIAS 62; BP_DIAS 65
[2017-06-18 22:00] VITALS: BP 117/63
[2017-06-19] VITALS (8 sets, daily range): BP systolic 93–138; BP diastolic 55–70
[2017-06-19] MEDS: LR 1,000 ML IV SCH (02:45)
[2017-06-19 07:32] LABS: BASO % 0.6 % (0.0-1.0); EOS # 0.1 10^3/uL (0.0-0.50); EOS % 1.4 % (0.0-3.0); IMMATURE GRANULOCYTE % 0.8 % (0-0); LYMPH # 1.2 10^3/uL (1.5-4.5); LYMPH % 18.2 % (24.0-44.0); MEAN CORPUSCULAR HEMOGLOBIN 35.7 pg (27.0-33.0); MEAN CORPUSCULAR HGB CONC 33.2 g/dl (32.0-36.5); MONO # 0.6 10^3/uL (0.0-0.8); MONO % 9.9 % (0.0-5.0); NEUTROPHILS # 4.4 10^3/uL (1.8-7.7); NEUTROPHILS % 69.1 % (36.0-66.0); RED CELL DISTRIBUTION WIDTH 12.8 % (11.5-14.5); WHITE BLOOD COUNT 6.4 10^3/uL (4.0-10.0)
[2017-06-19 07:59] LABS: ALBUMIN 2.3 GM/DL (3.2-5.2); ALBUMIN/GLOBULIN RATIO 0.64 (1.00-1.93); ALKALINE PHOSPHATASE 85 U/L (45-117); ALT/SGPT 46 U/L (12-78); ANION GAP 5 MEQ/L (8-16); AST/SGOT 41 U/L (15-37); BILIRUBIN,TOTAL 1.1 MG/DL (0.2-1.0); BLOOD UREA NITROGEN 9 MG/DL (7-18); CALCIUM LEVEL 8.9 MG/DL (8.8-10.2); CARBON DIOXIDE LEVEL 30 MEQ/L (21-32); CHLORIDE LEVEL 103 MEQ/L (98-107); CREATININE FOR GFR 0.53 MG/DL (0.55-1.02); GLOMERULAR FILTRATION RATE > 60.0 (>45); GLUCOSE, FASTING 107 MG/DL (80-110); MAGNESIUM LEVEL 1.6 MG/DL (1.8-2.4); POTASSIUM SERUM 3.5 MEQ/L (3.5-5.1); SODIUM LEVEL 138 MEQ/L (136-145); TOTAL PROTEIN 5.9 GM/DL (6.4-8.2)
[2017-06-19 08:04] LABS: ADD MANUAL DIFFER NO; ADD MORPHOLOGY? YES; DIFF SLIDE NUMBER 18; MEAN CORPUSCULAR VOLUME 107.3 fl (80.0-96.0)
[2017-06-19 08:06] LABS: PLATELET CLUMPS MODERATE AMT
[2017-06-19] MEDS ORDERED: MAG SULF 1GM/100ML (MAG RUN) 1 GM in APPROPRIATE DILUENT 1 EA IV ONE (08:45)
[2017-06-19] MEDS: MULTIVITAMINS/MINERALS THERAP 1 TAB PO SCH (10:03)
[2017-06-19] MEDS: OMEPRAZOLE 20 MG CAP PO SCH ×2 (10:04→20:06)
[2017-06-19] MEDS: DULoxetine 30 MG CAP (CYMBALTA) PO SCH (10:05)
[2017-06-19] MEDS: FOLIC ACID 1 MG TAB PO SCH (10:05)
[2017-06-19] MEDS: THIAMINE 100 MG TAB PO SCH (10:05)
[2017-06-19] MEDS: OXAZEPAM 15 MG CAP PO SCH ×2 (10:06→20:05)
[2017-06-19] MEDS: SENOKOT S TAB PO SCH ×2 (10:06→20:05)
--- NOTE | 2017-06-19 11:11 | IPNPDOC ---
Subjective Date Seen The patient was seen on 06/19/17. Subjective Chief Complaint/HPI The patient is a 71-year-old female admitted with a reason for visit of FALL. Events since last encounter pateint says that still feeling weak and very tired , however does not feel dizzy or light headed now, no fever or chills, no nausea or vomiting or diarrhea , still with poor appetite. Objective Physical Examination General Exam: Positive: Alert, Cooperative, No Acute Distress Eye Exam: Positive: PERRLA, Conjunctiva & lids normal, EOMI, Negative: Sclera icteric ENT Exam: Positive: Atraumatic, Mucous membr. moist/pink, Pharynx Normal Neck Exam: Positive: Supple, Negative: JVD, thyromegaly Chest Exam: Positive: Clear to auscultation, Normal air movement Heart Exam: Positive: Rate Normal, Regular Rhythm, Normal S1, Normal S2, Negative: Murmurs, Rubs Abdomen Exam: Positive: Normal bowel sounds, Soft, Negative: Tenderness, Hepatospenomegaly Extremity Exam: Positive: Edema (trace on the right. ), Normal pulses, Negative: Clubbing, Cyanosis Skin Exam: Positive: Nl turgor and temperature, Negative: Rash, Breakdown Assessment /Plan Problems (1) Orthostatic hypotension Status: Acute Response to Treatment: Improving Problem Text: no symptoms today will dc fluids. (2) Alcohol intoxication Status: Resolved Problem Text: history of alcohol abuse was intoxicated when came in . had mild withdrawal features now no further withdrawal will dc ativan start weaning serax. continue folate and thiamine. (3) Alcoholic hepatitis Status: Resolved Problem Text: lfts improved. (4) Fall Status: Acute Problem Text: no trauma sustained. (5) Fibromyalgia Status: Chronic (6) Gastric bypass status for obesity Status: Chronic (7) Depression Status: Chronic Plan/VTE VTE Prophylaxis Ordered?: Yes VS, I&O, 24H, Fishbone Vital Signs/I&O Vital Signs Date Time Temp Pulse Resp B/P (MAP) Pulse Ox O2 Delivery O2 Flow Rate FiO2 06/19/17 10:09 88 98/56 06/19/17 08:14 97.5 18 95 Room Air I&O- Last 24 Hours up to 6 AM 06/20/17 06:00 Output Total 600 ml Balance -600 ml Laboratory Data 24H LABS Laboratory Tests 2 06/19/17 07:04: Immature Granulocyte % (Auto) 0.8H, White Blood Count 6.4, Red Blood Count 3.14L , Hemoglobin 11.2L, Hematocrit 33.7L, Mean Corpuscular Volume 107.3H, Mean Corpuscular Hemoglobin 35.7H, Mean Corpuscular Hemoglobin Concent 33.2, Red Cell Distribution Width 12.8, Platelet Count , Neutrophils (%) (Auto) 69.1H, Lymphocytes (%) (Auto) 18.2L, Monocytes (%) (Auto) 9.9H, Eosinophils (%) (Auto) 1.4, Basophils (%) (Auto) 0.6, Neutrophils # (Auto) 4.4, Lymphocytes # (Auto) 1.2L, Monocytes # (Auto) 0.6, Eosinophils # (Auto) 0.1, Basophils # (Auto) 0.0, Immature Granulocyte # (Auto) 0.1H, Nucleated Red Blood Cells % (auto) 0.0, Platelet Estimate INVALID, Clumped Platelets MODERATE AMT, Macrocytosis 1+, Anion Gap 5L, Glomerular Filtration Rate > 60.0, Blood Urea Nitrogen 9, Creatinine 0.53L, Sodium Level 138, Potassium Level 3.5, Chloride Level 103, Carbon Dioxide Level 30, Calcium Level 8.9, Aspartate Amino Transf (AST/SGOT) 41H, Alanine Aminotransferase (ALT/SGPT) 46, Alkaline Phosphatase 85, Total Bilirubin 1.1H, Total Protein 5.9L, Albumin 2.3L, Magnesium Level 1.6L, Albumin/ Globulin Ratio 0.64L CBC/BMP Laboratory Tests 06/19/17 07:04 Red Blood Count 3.14 L, Mean Corpuscular Volume 107.3 H, Mean Corpuscular Hemoglobin 35.7 H, Mean Corpuscular Hemoglobin Concent 33.2, Red Cell Distribution Width 12.8, Neutrophils (%) (Auto) 69.1 H, Lymphocytes (%) (Auto) 18.2 L, Monocytes (%) (Auto) 9.9 H, Eosinophils (%) (Auto) 1.4, Basophils (%) ( Auto) 0.6, Neutrophils # (Auto) 4.4, Lymphocytes # (Auto) 1.2 L, Monocytes # ( Auto) 0.6, Eosinophils # (Auto) 0.1, Basophils # (Auto) 0.0, Calcium Level 8.9, Aspartate Amino Transf (AST/SGOT) 41 H, Alanine Aminotransferase (ALT/SGPT) 46, Alkaline Phosphatase 85, Total Bilirubin 1.1 H, Total Protein 5.9 L, Albumin 2.3 L ORQUIDEA CARMONA MD Jun 19, 2017 11:11
[2017-06-19] MEDS: MAG SULF 1GM/100ML (MAG RUN) 1 GM in APPROPRIATE DILUENT 1 EA IV SCH ×2 (12:02→13:00)
[2017-06-19] MEDS: ONDANSETRON 4MG/2ML VIAL (J2405) IV PRN (18:19)
[2017-06-19] MEDS: OXAZEPAM 10 MG CAP PO PRN (18:20)
[2017-06-19] MEDS: traZODone 50 MG TAB PO SCH (20:06)
[2017-06-20 00:05] VITALS: BP 122/60
[2017-06-20 06:00] VITALS: BP 100/65
[2017-06-20 06:21] LABS: BASO % 0.6 % (0.0-1.0); EOS # 0.1 10^3/uL (0.0-0.50); EOS % 1.3 % (0.0-3.0); IMMATURE GRANULOCYTE % 0.4 % (0-0); LYMPH # 1.3 10^3/uL (1.5-4.5); LYMPH % 17.7 % (24.0-44.0); MEAN CORPUSCULAR HEMOGLOBIN 34.8 pg (27.0-33.0); MEAN CORPUSCULAR HGB CONC 32.8 g/dl (32.0-36.5); MONO # 0.7 10^3/uL (0.0-0.8); MONO % 9.6 % (0.0-5.0); NEUTROPHILS % 70.4 % (36.0-66.0); RED CELL DISTRIBUTION WIDTH 12.5 % (11.5-14.5); WHITE BLOOD COUNT 7.1 10^3/uL (4.0-10.0)
[2017-06-20 06:28] LABS: MEAN CORPUSCULAR VOLUME 106.4 fl (80.0-96.0)
[2017-06-20 06:29] LABS: ADD MORPHOLOGY? YES
[2017-06-20 06:38] LABS: ALBUMIN 2.3 GM/DL (3.2-5.2); ALBUMIN/GLOBULIN RATIO 0.66 (1.00-1.93); ALKALINE PHOSPHATASE 82 U/L (45-117); ALT/SGPT 40 U/L (12-78); ANION GAP 6 MEQ/L (8-16); AST/SGOT 35 U/L (15-37); BILIRUBIN,TOTAL 0.9 MG/DL (0.2-1.0); BLOOD UREA NITROGEN 8 MG/DL (7-18); CARBON DIOXIDE LEVEL 30 MEQ/L (21-32); CHLORIDE LEVEL 103 MEQ/L (98-107); CREATININE FOR GFR 0.51 MG/DL (0.55-1.02); GLOMERULAR FILTRATION RATE > 60.0 (>45); GLUCOSE, FASTING 101 MG/DL (80-110); MAGNESIUM LEVEL 2.1 MG/DL (1.8-2.4); POTASSIUM SERUM 3.5 MEQ/L (3.5-5.1); SODIUM LEVEL 139 MEQ/L (136-145); TOTAL PROTEIN 5.8 GM/DL (6.4-8.2)
[2017-06-20 07:18] LABS: PLATELET CLUMPS MODERATE AMT
[2017-06-20 07:41] VITALS: BP_SYST 100; BP_SYST 110; BP_SYST 94; BP_DIAS 58; BP_DIAS 64; BP_DIAS 70
[2017-06-20 08:00] VITALS: BP 110/70
[2017-06-20] MEDS: OXAZEPAM 15 MG CAP PO SCH (08:41)
[2017-06-20] MEDS: SENOKOT S TAB PO SCH ×2 (08:41→20:26)
[2017-06-20] MEDS: MULTIVITAMINS/MINERALS THERAP 1 TAB PO SCH (08:41)
[2017-06-20] MEDS: OMEPRAZOLE 20 MG CAP PO SCH ×2 (08:41→20:26)
[2017-06-20] MEDS: THIAMINE 100 MG TAB PO SCH (08:41)
[2017-06-20] MEDS: FOLIC ACID 1 MG TAB PO SCH (08:41)
[2017-06-20] MEDS: DULoxetine 30 MG CAP (CYMBALTA) PO SCH (08:41)
--- NOTE | 2017-06-20 11:30 | IPNPDOC ---
Subjective Date Seen The patient was seen on 06/20/17. Subjective Chief Complaint/HPI The patient is a 71-year-old female admitted with a reason for visit of FALL. Events since last encounter feeling stronger this am , seen walking in the corridor with spouse. still complains of poor appetite. as per nurses intake is about 50% of each meal. no fever or chills, no nausea or vomiting Objective Physical Examination General Exam: Positive: Alert, Cooperative, No Acute Distress Eye Exam: Positive: PERRLA, Conjunctiva & lids normal, EOMI, Negative: Sclera icteric ENT Exam: Positive: Atraumatic, Mucous membr. moist/pink, Pharynx Normal Neck Exam: Positive: Supple, Negative: JVD, thyromegaly Chest Exam: Positive: Normal air movement, Rales (at the right base) Heart Exam: Positive: Rate Normal, Regular Rhythm, Normal S1, Normal S2, Negative: Murmurs, Rubs Abdomen Exam: Positive: Normal bowel sounds, Soft, Negative: Tenderness, Hepatospenomegaly Extremity Exam: Positive: Edema (trace on the right. ), Normal pulses, Negative: Clubbing, Cyanosis Skin Exam: Positive: Nl turgor and temperature, Negative: Rash, Breakdown Assessment /Plan Problems (1) Orthostatic hypotension Status: Resolved (2) Alcohol intoxication Status: Resolved Problem Text: history of alcohol abuse was intoxicated when came in . had mild withdrawal features now no further withdrawal weaning serax. continue folate and thiamine. (3) Alcoholic hepatitis Status: Resolved Problem Text: lfts improved. (4) Fall Status: Acute Problem Text: no trauma sustained. (5) Fibromyalgia Status: Chronic (6) Gastric bypass status for obesity Status: Chronic (7) Depression Status: Chronic Problem Text: continue cymbalta Plan/VTE VTE Prophylaxis Ordered?: Yes VS, I&O, 24H, Fishbone Vital Signs/I&O Vital Signs Date Time Temp Pulse Resp B/P (MAP) Pulse Ox O2 Delivery O2 Flow Rate FiO2 06/20/17 07:41 92 110/70 (83) 98 100/64 (76) 115 94/58 (70) 06/20/17 06:00 97.3 16 96 Room Air I&O- Last 24 Hours up to 6 AM 06/21/17 06:00 Intake Total 500 ml Output Total 400 ml Balance 100 ml Laboratory Data 24H LABS Laboratory Tests 2 06/20/17 05:54: Immature Granulocyte % (Auto) 0.4H, White Blood Count 7.1, Red Blood Count 3.30L , Hemoglobin 11.5L, Hematocrit 35.1L, Mean Corpuscular Volume 106.4H, Mean Corpuscular Hemoglobin 34.8H, Mean Corpuscular Hemoglobin Concent 32.8, Red Cell Distribution Width 12.5, Platelet Count , Neutrophils (%) (Auto) 70.4H, Lymphocytes (%) (Auto) 17.7L, Monocytes (%) (Auto) 9.6H, Eosinophils (%) (Auto) 1.3, Basophils (%) (Auto) 0.6, Neutrophils # (Auto) 5.0, Lymphocytes # (Auto) 1.3L, Monocytes # (Auto) 0.7, Eosinophils # (Auto) 0.1, Basophils # (Auto) 0.0, Immature Granulocyte # (Auto) 0.0, Nucleated Red Blood Cells % (auto) 0.0, Platelet Estimate INVALID, Clumped Platelets MODERATE AMT, Macrocytosis 2+, Anion Gap 6L, Glomerular Filtration Rate > 60.0, Blood Urea Nitrogen 8, Creatinine 0.51L, Sodium Level 139, Potassium Level 3.5, Chloride Level 103, Carbon Dioxide Level 30, Calcium Level 9.0, Aspartate Amino Transf (AST/SGOT) 35 , Alanine Aminotransferase (ALT/SGPT) 40, Alkaline Phosphatase 82, Total Bilirubin 0.9, Total Protein 5.8L, Albumin 2.3L, Magnesium Level 2.1, Albumin/ Globulin Ratio 0.66L CBC/BMP Laboratory Tests 06/20/17 05:54 Red Blood Count 3.30 L, Mean Corpuscular Volume 106.4 H, Mean Corpuscular Hemoglobin 34.8 H, Mean Corpuscular Hemoglobin Concent 32.8, Red Cell Distribution Width 12.5, Neutrophils (%) (Auto) 70.4 H, Lymphocytes (%) (Auto) 17.7 L, Monocytes (%) (Auto) 9.6 H, Eosinophils (%) (Auto) 1.3, Basophils (%) ( Auto) 0.6, Neutrophils # (Auto) 5.0, Lymphocytes # (Auto) 1.3 L, Monocytes # ( Auto) 0.7, Eosinophils # (Auto) 0.1, Basophils # (Auto) 0.0, Calcium Level 9.0, Aspartate Amino Transf (AST/SGOT) 35, Alanine Aminotransferase (ALT/SGPT) 40, Alkaline Phosphatase 82, Total Bilirubin 0.9, Total Protein 5.8 L, Albumin 2.3 L ORQUIDEA CARMONA MD Jun 20, 2017 11:30
[2017-06-20] MEDS: OXAZEPAM 10 MG CAP PO PRN (14:29)
[2017-06-20 16:30] VITALS: BP 129/59
[2017-06-20] MEDS: ONDANSETRON 4MG/2ML VIAL (J2405) IV PRN (16:36)
[2017-06-20] MEDS: traZODone 50 MG TAB PO SCH (20:25)
[2017-06-20] MEDS: OXAZEPAM 10 MG CAP PO SCH (20:26)
[2017-06-20 22:00] VITALS: BP 129/62
[2017-06-21 00:46] VITALS: BP 130/62
[2017-06-21 06:00] VITALS: BP_SYST 106; BP_SYST 107; BP_SYST 131; BP_DIAS 54; BP_DIAS 66; BP_DIAS 74
[2017-06-21 06:59] LABS: BASO % 0.6 % (0.0-1.0); EOS # 0.1 10^3/uL (0.0-0.50); EOS % 1.3 % (0.0-3.0); IMMATURE GRANULOCYTE % 0.6 % (0-0); LYMPH # 1.1 10^3/uL (1.5-4.5); LYMPH % 17.5 % (24.0-44.0); MEAN CORPUSCULAR HGB CONC 32.7 g/dl (32.0-36.5); MONO # 0.6 10^3/uL (0.0-0.8); NEUTROPHILS # 4.4 10^3/uL (1.8-7.7); PLATELET COUNT, AUTOMATED 193 10^3/uL (150-450); RED CELL DISTRIBUTION WIDTH 12.3 % (11.5-14.5); WHITE BLOOD COUNT 6.2 10^3/uL (4.0-10.0)
[2017-06-21 07:00] LABS: MEAN CORPUSCULAR VOLUME 107.1 fl (80.0-96.0)
[2017-06-21 07:03] LABS: ADD MORPHOLOGY? YES
[2017-06-21 07:21] LABS: ALBUMIN 2.3 GM/DL (3.2-5.2); ALBUMIN/GLOBULIN RATIO 0.62 (1.00-1.93); ALKALINE PHOSPHATASE 84 U/L (45-117); ALT/SGPT 36 U/L (12-78); ANION GAP 6 MEQ/L (8-16); AST/SGOT 31 U/L (15-37); BILIRUBIN,TOTAL 0.8 MG/DL (0.2-1.0); BLOOD UREA NITROGEN 10 MG/DL (7-18); CALCIUM LEVEL 8.7 MG/DL (8.8-10.2); CARBON DIOXIDE LEVEL 31 MEQ/L (21-32); CHLORIDE LEVEL 102 MEQ/L (98-107); CREATININE FOR GFR 0.52 MG/DL (0.55-1.02); GLOMERULAR FILTRATION RATE > 60.0 (>45); GLUCOSE, FASTING 105 MG/DL (80-110); POTASSIUM SERUM 3.3 MEQ/L (3.5-5.1); SODIUM LEVEL 139 MEQ/L (136-145)
[2017-06-21 07:38] LABS: PLATELET CLUMPS MODERATE AMT
[2017-06-21 08:00] VITALS: BP 133/78
[2017-06-21] MEDS: THIAMINE 100 MG TAB PO SCH (08:12)
[2017-06-21] MEDS: OMEPRAZOLE 20 MG CAP PO SCH (08:12)
[2017-06-21] MEDS: FOLIC ACID 1 MG TAB PO SCH (08:12)
[2017-06-21] MEDS: DULoxetine 30 MG CAP (CYMBALTA) PO SCH (08:12)
[2017-06-21] MEDS: MULTIVITAMINS/MINERALS THERAP 1 TAB PO SCH (08:12)
[2017-06-21] MEDS: SENOKOT S TAB PO SCH (08:12)
[2017-06-21] MEDS: OXAZEPAM 10 MG CAP PO SCH (08:12)
[2017-06-21] MEDS ORDERED: POTASSIUM CHLORIDE 10 MEQ SR TABLET PO ONE (10:45)
[2017-06-21] MEDS ORDERED: OXAZ10CA3 PO (10:50)
[2017-06-21] MEDS ORDERED: FOLI1TAB4 PO (10:50)
[2017-06-21] MEDS ORDERED: THIA100TA PO (10:50)
[2017-06-21 12:03] VITALS: BP 132/69
--- NOTE | 2017-06-21 14:17 | DSES ---
DATE OF ADMISSION: 06/15/2017 DATE OF DISCHARGE: 06/21/2017 PRIMARY CARE PROVIDER: Dr. Brenna Castro DISCHARGE DIAGNOSES: Orthostatic hypertension. Alcoholic hepatitis. Fall without trauma. Alcohol intoxication followed by mild withdrawal. Fibromyalgia. Depression. History of gastric bypass surgery for obesity. Hyponatremia, resolved. DISCHARGE MEDICATIONS: - folic acid 1 mg daily - thiamine 100 mg daily - oxazepam 10 mg daily for 3 days - Lomotil one tablet by mouth as needed diarrhea - duloxetine 30 mg by mouth daily - estradiol 10 mcg tablet per vagina every 2 weeks as needed irritation - lorazepam 0.5 mg tablet by mouth three times a day as needed anxiety - omeprazole 40 mg by mouth twice a day - Zofran 8 mg by mouth three times a day as needed - trazodone 150 mg at bedtime - Ambien 10 mg at bedtime as needed sleep HOSPITAL COURSE: This is a 71-year-old female presented to the hospital after sustaining a fall at home and was unable to get up on her own. She was helped up by family, however, continued to be unsteady on her feet. She went back to bed, woke up and fell again. At that point, patient was confused and could not remember that she had fallen previously, so the patient was brought to the emergency room. In the emergency department (ED) patient was noted to be intoxicated with a high blood alcohol level. Patient was also noted to be positive for orthostatic hypotension. Patient was admitted for alcohol intoxication and orthostatic hypotension. In the hospital, patient was hydrated with improvement in her blood pressures. Patient did have mild withdrawal symptoms, which were adequately managed with small doses of Serax and Ativan. Patient also had abnormal liver function tests (LFTs) on presentation which were felt to be due to alcohol abuse and alcoholic hepatitis, which resolved during the hospitalization. Patient had expressed her wishes to go into inpatient alcohol rehabilitation. We had consulted patient and family services (PFS) services to help with this. PFS has given her a list of facilities from which the patient and her family may choose. They are looking into it. However, it was explained to them that it may take a little time for everything to be set up for inpatient rehabilitation, and usually the patient can call herself as an outpatient and get admitted there voluntarily. At present, patient is functionally close to her baseline. There are no signs of alcohol withdrawal. Her vital signs are stable, and there are no other complaints, so the patient is going to be discharged home in stable condition. PHYSICAL EXAM: VITAL SIGNS: Temperature 97.2, pulse 69, respiratory rate 16, blood pressure 132/69, pulse oximetry 98% on room air. GENERAL: Patient awake, alert, oriented times three, sitting up in bed, in no acute distress. HEENT: Normocephalic, atraumatic. Moist mucous membranes. Anicteric eyes. CHEST: There are mild basilar crackles at the right base felt to be due to atelectasis. CARDIOVASCULAR: S1, S2, regular. No rub, murmur, or gallop. ABDOMEN: Soft. Nontender. Bowel sounds present. EXTREMITIES: There is unilateral right-sided chronic edema. LABORATORY DATA: WBC 6.2, hemoglobin 11.3, platelets 193. Sodium 139, potassium 3.3, replaced, chloride 102, bicarbonate 31, BUN 10, creatinine 0.5, calcium 8.7, glucose 105, magnesium 2, phosphorus 3. Liver function tests are normal. UA clean. Blood level alcohol level was 0.154 on admission. Vascular ultrasound: There was no evidence of deep venous thrombosis (DVT) on the right. CT head showed small vessel ischemic disease, mild volume loss. Chest x-ray: No acute pulmonary disease. DISPOSITION: Patient is discharged home in stable condition. DISCHARGE INSTRUCTIONS: Patient is to followup with primary care provider in 1 week. She is advised to refrain from drinking alcohol. Patient is interested in going into inpatient rehabilitation. Patient has been given a list of facilities that she could call for voluntary admission. Regular diet. Activity as tolerated.
== END 2017-06-21 12:18 | disposition home or self-care (01) | DRG 433 ==
LOC: M ED 09:51 → M ED INP 13:15 → M MSPAV 15:31 → OBSVTOIN 06-15 13:28
PROVIDERS: ADMIT Hospitalist; ATTEND Internal Medicine Nephrology
DX: K70.10 Alcoholic hepatitis without ascites (principal); E87.1 Hypo-osmolality and hyponatremia; F10.239 Alcohol dependence with withdrawal, unspecified; E87.6 Hypokalemia; F10.229 Alcohol dependence with intoxication, unspecified; I95.1 Orthostatic hypotension; M79.7 Fibromyalgia; F32.9 Major depressive disorder, single episode, unspecified; Z79.899 Other long term (current) drug therapy; Z98.84 Bariatric surgery status; R29.6 Repeated falls; E66.01 Morbid (severe) obesity due to excess calories; K29.20 Alcoholic gastritis without bleeding; E83.42 Hypomagnesemia

== ENCOUNTER → 2017-09-04 | Outpatient (REF) | payer MEDICARE, OTHER | LOC: M LAB REF 17:39 | PROVIDERS: ATTEND Nurse Practitioner Family | DX: M79.7 Fibromyalgia (principal) ==

== ENCOUNTER → 2018-02-21 | Outpatient (REF) | payer MEDICARE, OTHER ==
[2018-02-21 22:39] LABS: AMORPHOUS SEDIMENT SMALL (NEGATIVE); APPEARANCE, URINE HAZY (CLEAR); BACTERIA, URINE AUTO 1+ (NEGATIVE); BILIRUBIN, URINE AUTO NEGATIVE (NEGATIVE); BLOOD, URINE BLOOD 1+ (NEGATIVE); COLOR, URINE YELLOW (YELLOW); GLUCOSE, URINE (UA) AUTO NEGATIVE (NEGATIVE); KETONE, URINE AUTO NEGATIVE (NEGATIVE); LEUKOCYTE ESTERASE, URINE AUTO 1+ (NEGATIVE); MUCUS, URINE SMALL (NEGATIVE); NITRITE, URINE AUTO POSITIVE (NEGATIVE); PROTEIN, URINE AUTO 1+ mg/dL (NEGATIVE); RBC, URINE AUTO 20 /HPF (0-3); SPECIFIC GRAVITY URINE AUTO 1.017 (1.002-1.035); SQUAMOUS EPITHELIAL CELL UR AU 8 /HPF (0-6); WBC, URINE AUTO TNTC /HPF (0-3)
== END ==
LOC: M LAB REF 21:38
DX: N39.0 Urinary tract infection, site not specified (principal)
CPT/HCPCS: 81001

== ENCOUNTER → 2018-04-26 | Outpatient (CLI) | payer MEDICARE, OTHER | LOC: M RAD 14:59 | DX: R00.2 Palpitations (principal) | CPT/HCPCS: 71046 ==

== ENCOUNTER 2018-07-13 10:19 | Inpatient (IN) | payer MEDICARE, OTHER ==
[2018-07-13] MEDS: PANTOPRAZOLE 40MG INJ (PROTONIX) (C9113) IV (09:00)
[2018-07-13 11:13] LABS: BEDSIDE GLUCOSE 91 MG/DL (83-110)
[2018-07-13 11:29] LABS: BASO % 0.6 % (0.0-1.0); EOS # 0.1 10^3/uL (0.0-0.50); EOS % 1.1 % (0.0-3.0); HEMATOCRIT 38.1 % (36.0-47.0); HEMOGLOBIN 12.5 g/dl (12.0-15.5); IMMATURE GRANULOCYTE % 0.2 % (0-3.0); LYMPH % 21.4 % (24.0-44.0); MEAN CORPUSCULAR HEMOGLOBIN 34.6 pg (27.0-33.0); MEAN CORPUSCULAR HGB CONC 32.8 g/dl (32.0-36.5); MEAN CORPUSCULAR VOLUME 105.5 fl (80.0-96.0); MONO # 0.5 10^3/uL (0.0-0.8); MONO % 10.3 % (0.0-5.0); NEUTROPHILS # 3.1 10^3/uL (1.8-7.7); NEUTROPHILS % 66.4 % (36.0-66.0); RED BLOOD COUNT 3.61 10^6/uL (4.00-5.40); WHITE BLOOD COUNT 4.7 10^3/uL (4.0-10.0)
[2018-07-13] MEDS: OXAZEPAM 10 MG CAP PO ×2 (11:29→12:14)
[2018-07-13 11:37] LABS: POS COUNT POS FLAG; SUSPECT SAMPLE POS FLAG
[2018-07-13 12:00] LABS: AMMONIA 21 uMOL/L (<32)
[2018-07-13 12:07] LABS: ACETAMINOPHEN LEVEL < 2.0 UG/ML (10.0-30.0); ALBUMIN 3.1 GM/DL (3.2-5.2); ALBUMIN/GLOBULIN RATIO 0.84 (1.00-1.93); ALKALINE PHOSPHATASE 110 U/L (45-117); ALT/SGPT 132 U/L (12-78); ANION GAP 9 MEQ/L (8-16); AST/SGOT 257 U/L (7-37); BILIRUBIN,DIRECT 0.4 MG/DL (0.0-0.2); BILIRUBIN,TOTAL 0.8 MG/DL (0.2-1.0); BLOOD UREA NITROGEN 11 MG/DL (7-18); CALCIUM LEVEL 8.8 MG/DL (8.8-10.2); CARBON DIOXIDE LEVEL 29 MEQ/L (21-32); CHLORIDE LEVEL 100 MEQ/L (98-107); CPK CREATINE PHOSPHOKINASE 87 U/L (26-192); CREATININE FOR GFR 0.66 MG/DL (0.55-1.30); GLOMERULAR FILTRATION RATE > 60.0 (>39); GLUCOSE, FASTING 81 MG/DL (70-100); MB/CK RELATIVE INDEX 2.41 (< OR =4); POTASSIUM SERUM 4.7 MEQ/L (3.5-5.1); SALICYLATE LEVEL < 1.7 MG/DL (5.0-30.0); SODIUM LEVEL 138 MEQ/L (136-145); TOTAL PROTEIN 6.8 GM/DL (6.4-8.2); TROPONIN I < 0.02 NG/ML (< 0.10)
[2018-07-13 12:10] LABS: LACTIC ACID SEPSIS PROTOCOL 3.6 MMOL/L (0.4-2.0)
[2018-07-13] MEDS: LORazepam 2 MG/ML VIAL (J2060) IV ×3 (12:14→17:40)
[2018-07-13] MEDS: NS 1,000 ML IV (12:24)
[2018-07-13 12:38] LABS: KETONE, URINE AUTO RFX TRACE mg/dL (NEGATIVE); LEUKOCYTE ESTERASE UR AUTO RFX NEGATIVE (NEGATIVE); MUCUS, URINE RFX SMALL (NEGATIVE); RBC, URINE AUTO RFX 6 /HPF (0-3); SQUAM EPITHELIAL CELL UR AURFX 8 /HPF (0-6); WBC, URINE AUTO RFX 2 /HPF (0-3)
[2018-07-13 12:42] LABS: NITRITE, URINE AUTO RFX POSITIVE (NEGATIVE)
[2018-07-13 12:43] LABS: LIPASE 197 U/L (73-393)
[2018-07-13] MEDS: ONDANSETRON 4MG/2ML VIAL (J2405) IV (12:57)
[2018-07-13 13:01] LABS: AMPHETAMINES LEVEL URINE NEGATIVE (NEGATIVE); BARBITURATES URINE NEGATIVE (NEGATIVE); BENZODIAZEPINES URINE NEGATIVE (NEGATIVE); CANNABINOIDS URINE NEGATIVE (NEGATIVE); COCAINE METABOLITE URINE NEGATIVE (NEGATIVE); METHADONE URINE NEGATIVE (NEGATIVE); OPIATES URINE NEGATIVE (NEGATIVE); PHENCYCLIDINE URINE NEGATIVE (NEGATIVE)
[2018-07-13] MEDS ORDERED: GLUCAGON FOR INJ 1 MG VIAL (J1610) SC (13:30)
[2018-07-13] MEDS ORDERED: GLUCOSE 4 GM CHEW TABLET PO (13:30)
[2018-07-13] MEDS ORDERED: DEXTROSE 50% 50 ML SYRINGE IV (13:30)
[2018-07-13] MEDS: METOPROLOL SUCC *XL* 25MG TAB (TopROL *XL*) PO (15:04)
[2018-07-13] MEDS: MULTIVITAMIN -ADULT INJECTION 10 ML, THIAMINE INJection 100 MG, FOLIC ACID 1 MG in NS 1... IV (15:04)
[2018-07-13] MEDS: CIPROFLOXACIN 500 MG TAB PO (15:05)
[2018-07-13] MEDS: DULoxetine 30 MG CAP (CYMBALTA) PO (15:05)
[2018-07-13 15:41] LABS: RETIC HEMOGLOBIN EQUIVALENT 41.1 pg (24-36); RETICULOCYTE # 46.2 10^9/L (17-77); RETICULOCYTE % 1.3 % (0.5-1.5)
[2018-07-13] MEDS ORDERED: PROHANCE 279.3MG/ML 15ML VIAL (A9576) As Ordered (16:01)
[2018-07-13] MEDS ORDERED: PROHANCE 279.3MG/ML 5ML VIAL (A9576) As Ordered (16:01)
[2018-07-13] MEDS ORDERED: HumaLOG INSULIN (NovoLOG) PER UNIT SC ×2 (17:30→21:00)
[2018-07-13] MEDS: chlordiazePOXIDE 25 MG CAP PO ×2 (17:45→21:16)
[2018-07-13] MEDS ORDERED: OXAZEPAM 15 MG CAP PO (18:00)
[2018-07-13 18:41] LABS: BEDSIDE GLUCOSE 101 MG/DL (83-110)
[2018-07-13] MEDS: traZODone 50 MG TAB PO (21:16)
[2018-07-14] MEDS: chlordiazePOXIDE 25 MG CAP PO ×5 (01:38→17:45)
[2018-07-14] MEDS: NS 1,000 ML IV ×2 (03:30→17:45)
[2018-07-14 05:40] LABS: BASO % 0.8 % (0.0-1.0); EOS # 0.1 10^3/uL (0.0-0.50); EOS % 1.9 % (0.0-3.0); HEMATOCRIT 30.8 % (36.0-47.0); IMMATURE GRANULOCYTE % 0.3 % (0-3.0); LYMPH # 1.2 10^3/uL (1.5-4.5); LYMPH % 30.9 % (24.0-44.0); MEAN CORPUSCULAR HEMOGLOBIN 34.4 pg (27.0-33.0); MEAN CORPUSCULAR HGB CONC 32.5 g/dl (32.0-36.5); MEAN CORPUSCULAR VOLUME 105.8 fl (80.0-96.0); MONO # 0.5 10^3/uL (0.0-0.8); NEUTROPHILS % 54.1 % (36.0-66.0); RED BLOOD COUNT 2.91 10^6/uL (4.00-5.40); RED CELL DISTRIBUTION WIDTH 12.9 % (11.5-14.5); WHITE BLOOD COUNT 3.8 10^3/uL (4.0-10.0)
[2018-07-14] MEDS: CIPROFLOXACIN 500 MG TAB PO (06:01)
[2018-07-14 06:02] LABS: ANION GAP 6 MEQ/L (8-16); BLOOD UREA NITROGEN 15 MG/DL (7-18); CALCIUM LEVEL 8.3 MG/DL (8.8-10.2); CARBON DIOXIDE LEVEL 31 MEQ/L (21-32); CHLORIDE LEVEL 104 MEQ/L (98-107); CREATININE FOR GFR 0.74 MG/DL (0.55-1.30); GLOMERULAR FILTRATION RATE > 60.0 (>39); GLUCOSE, FASTING 88 MG/DL (70-100); POTASSIUM SERUM 3.8 MEQ/L (3.5-5.1); SODIUM LEVEL 141 MEQ/L (136-145)
[2018-07-14 06:15] LABS: POS COUNT POS FLAG; SUSPECT SAMPLE POS FLAG
[2018-07-14] MEDS: MULTIVITAMINS/MINERALS THERAP 1 TAB PO (11:16)
[2018-07-14] MEDS: ONDANSETRON 4MG/2ML VIAL (J2405) IV (11:16)
[2018-07-14] MEDS: PANTOPRAZOLE 40MG INJ (PROTONIX) (C9113) IV (11:16)
[2018-07-14] MEDS: DULoxetine 30 MG CAP (CYMBALTA) PO (11:17)
[2018-07-14] MEDS: THIAMINE 100 MG TAB PO (11:17)
[2018-07-14] MEDS: FOLIC ACID 1 MG TAB PO (11:17)
[2018-07-14] MEDS: METOPROLOL SUCC *XL* 25MG TAB (TopROL *XL*) PO (11:17)
[2018-07-14] MEDS: traZODone 50 MG TAB PO (20:04)
[2018-07-15] MEDS: chlordiazePOXIDE 25 MG CAP PO ×5 (00:04→20:56)
[2018-07-15] MEDS: NS 1,000 ML IV (04:59)
[2018-07-15] MEDS: CIPROFLOXACIN 500 MG TAB PO (04:59)
[2018-07-15 05:06] LABS: BASO % 0.8 % (0.0-1.0); EOS # 0.1 10^3/uL (0.0-0.50); HEMATOCRIT 31.9 % (36.0-47.0); HEMOGLOBIN 10.3 g/dl (12.0-15.5); IMMATURE GRANULOCYTE % 0.3 % (0-3.0); LYMPH # 1.4 10^3/uL (1.5-4.5); LYMPH % 35.8 % (24.0-44.0); MEAN CORPUSCULAR HEMOGLOBIN 34.4 pg (27.0-33.0); MEAN CORPUSCULAR HGB CONC 32.3 g/dl (32.0-36.5); MEAN CORPUSCULAR VOLUME 106.7 fl (80.0-96.0); MONO # 0.4 10^3/uL (0.0-0.8); MONO % 9.5 % (0.0-5.0); NEUTROPHILS # 2.1 10^3/uL (1.8-7.7); NEUTROPHILS % 51.6 % (36.0-66.0); RED BLOOD COUNT 2.99 10^6/uL (4.00-5.40); RED CELL DISTRIBUTION WIDTH 12.6 % (11.5-14.5)
[2018-07-15 05:34] LABS: ANION GAP 8 MEQ/L (8-16); BLOOD UREA NITROGEN 12 MG/DL (7-18); CALCIUM LEVEL 8.3 MG/DL (8.8-10.2); CARBON DIOXIDE LEVEL 29 MEQ/L (21-32); CHLORIDE LEVEL 115 MEQ/L (98-107); CREATININE FOR GFR 0.64 MG/DL (0.55-1.30); GLOMERULAR FILTRATION RATE > 60.0 (>39); GLUCOSE, FASTING 91 MG/DL (70-100); MAGNESIUM LEVEL 1.9 MG/DL (1.8-2.4); POTASSIUM SERUM 3.8 MEQ/L (3.5-5.1); SODIUM LEVEL 152 MEQ/L (136-145)
[2018-07-15] MEDS: DULoxetine 30 MG CAP (CYMBALTA) PO (09:12)
[2018-07-15] MEDS: THIAMINE 100 MG TAB PO (09:12)
[2018-07-15] MEDS: PANTOPRAZOLE 40MG INJ (PROTONIX) (C9113) IV (09:15)
[2018-07-15] MEDS: MULTIVITAMINS/MINERALS THERAP 1 TAB PO (09:15)
[2018-07-15] MEDS: METOPROLOL SUCC *XL* 25MG TAB (TopROL *XL*) PO (09:15)
[2018-07-15] MEDS: FOLIC ACID 1 MG TAB PO (09:15)
[2018-07-15 09:54] LABS: FOLATE 10.8 NG/ML (>5.4)
[2018-07-15] MEDS ORDERED: SLF 3 ML SYR IV (10:30)
[2018-07-15 11:12] LABS: HEPATITIS A ANTIBODY IGM NEGATIVE (NEGATIVE); HEPATITIS B CORE ANTIBODY IGM NEGATIVE (NEGATIVE); HEPATITIS B SURFACE ANTIGEN NEGATIVE (NEGATIVE)
[2018-07-15 11:12] LABS: HEPATITIS C VIRUS ABY INDEX < 0.0 INDEX (<0.8)
[2018-07-15] MEDS: SLF 3 ML SYR IV ×2 (14:00→14:05)
[2018-07-15] MEDS: traZODone 50 MG TAB PO (20:56)
[2018-07-16] MEDS: chlordiazePOXIDE 25 MG CAP PO ×4 (00:04→23:43)
[2018-07-16] MEDS: CIPROFLOXACIN 500 MG TAB PO (05:14)
[2018-07-16 06:03] LABS: BASO % 0.6 % (0.0-1.0); EOS # 0.1 10^3/uL (0.0-0.50); EOS % 2.2 % (0.0-3.0); HEMATOCRIT 33.8 % (36.0-47.0); HEMOGLOBIN 10.9 g/dl (12.0-15.5); IMMATURE GRANULOCYTE % 0.2 % (0-3.0); LYMPH # 1.3 10^3/uL (1.5-4.5); LYMPH % 24.9 % (24.0-44.0); MEAN CORPUSCULAR HEMOGLOBIN 34.4 pg (27.0-33.0); MEAN CORPUSCULAR HGB CONC 32.2 g/dl (32.0-36.5); MEAN CORPUSCULAR VOLUME 106.6 fl (80.0-96.0); MONO # 0.5 10^3/uL (0.0-0.8); MONO % 9.7 % (0.0-5.0); NEUTROPHILS # 3.2 10^3/uL (1.8-7.7); NEUTROPHILS % 62.4 % (36.0-66.0); RED BLOOD COUNT 3.17 10^6/uL (4.00-5.40); RED CELL DISTRIBUTION WIDTH 12.4 % (11.5-14.5); WHITE BLOOD COUNT 5.1 10^3/uL (4.0-10.0)
[2018-07-16 06:29] LABS: POS COUNT POS FLAG
[2018-07-16 06:33] LABS: ANION GAP 7 MEQ/L (8-16); BLOOD UREA NITROGEN 10 MG/DL (7-18); CALCIUM LEVEL 8.6 MG/DL (8.8-10.2); CARBON DIOXIDE LEVEL 28 MEQ/L (21-32); CHLORIDE LEVEL 107 MEQ/L (98-107); GLOMERULAR FILTRATION RATE > 60.0 (>39); GLUCOSE, FASTING 103 MG/DL (70-100); POTASSIUM SERUM 3.4 MEQ/L (3.5-5.1); SODIUM LEVEL 142 MEQ/L (136-145)
[2018-07-16] MEDS: DULoxetine 30 MG CAP (CYMBALTA) PO (08:10)
[2018-07-16] MEDS: THIAMINE 100 MG TAB PO (08:10)
[2018-07-16] MEDS: PANTOPRAZOLE 40MG TAB (PROTONIX) PO (08:10)
[2018-07-16] MEDS: FOLIC ACID 1 MG TAB PO (08:10)
[2018-07-16] MEDS: MULTIVITAMINS/MINERALS THERAP 1 TAB PO (08:10)
[2018-07-16] MEDS: METOPROLOL SUCC *XL* 25MG TAB (TopROL *XL*) PO (08:12)
[2018-07-16] MEDS: traZODone 50 MG TAB PO (20:46)
[2018-07-17] MEDS: chlordiazePOXIDE 25 MG CAP PO ×3 (06:23→21:44)
[2018-07-17 06:53] LABS: BASO % 0.3 % (0.0-1.0); EOS # 0.1 10^3/uL (0.0-0.50); EOS % 1.3 % (0.0-3.0); HEMATOCRIT 34.5 % (36.0-47.0); HEMOGLOBIN 11.2 g/dl (12.0-15.5); IMMATURE GRANULOCYTE % 0.3 % (0-3.0); LYMPH # 1.2 10^3/uL (1.5-4.5); LYMPH % 18.9 % (24.0-44.0); MEAN CORPUSCULAR HEMOGLOBIN 34.3 pg (27.0-33.0); MEAN CORPUSCULAR HGB CONC 32.5 g/dl (32.0-36.5); MEAN CORPUSCULAR VOLUME 105.5 fl (80.0-96.0); MONO # 0.5 10^3/uL (0.0-0.8); MONO % 7.7 % (0.0-5.0); NEUTROPHILS # 4.6 10^3/uL (1.8-7.7); NEUTROPHILS % 71.5 % (36.0-66.0); RED BLOOD COUNT 3.27 10^6/uL (4.00-5.40); RED CELL DISTRIBUTION WIDTH 12.4 % (11.5-14.5); WHITE BLOOD COUNT 6.4 10^3/uL (4.0-10.0)
[2018-07-17 07:19] LABS: ANION GAP 6 MEQ/L (8-16); BLOOD UREA NITROGEN 13 MG/DL (7-18); CALCIUM LEVEL 8.9 MG/DL (8.8-10.2); CARBON DIOXIDE LEVEL 29 MEQ/L (21-32); CHLORIDE LEVEL 105 MEQ/L (98-107); GLOMERULAR FILTRATION RATE > 60.0 (>39); GLUCOSE, FASTING 121 MG/DL (70-100); MAGNESIUM LEVEL 1.8 MG/DL (1.8-2.4); POTASSIUM SERUM 3.4 MEQ/L (3.5-5.1); SODIUM LEVEL 140 MEQ/L (136-145)
[2018-07-17 07:47] LABS: POS COUNT POS FLAG; SUSPECT SAMPLE POS FLAG
[2018-07-17] MEDS: DULoxetine 30 MG CAP (CYMBALTA) PO (09:16)
[2018-07-17] MEDS: MULTIVITAMINS/MINERALS THERAP 1 TAB PO (09:16)
[2018-07-17] MEDS: PANTOPRAZOLE 40MG TAB (PROTONIX) PO (09:16)
[2018-07-17] MEDS: THIAMINE 100 MG TAB PO (09:16)
[2018-07-17] MEDS: FOLIC ACID 1 MG TAB PO (09:16)
[2018-07-17] MEDS: METOPROLOL SUCC *XL* 25MG TAB (TopROL *XL*) PO (12:07)
[2018-07-17] MEDS: traZODone 50 MG TAB PO (21:44)
[2018-07-18 05:56] LABS: BASO % 0.3 % (0.0-1.0); EOS # 0.1 10^3/uL (0.0-0.50); EOS % 1.5 % (0.0-3.0); HEMATOCRIT 32.5 % (36.0-47.0); HEMOGLOBIN 10.6 g/dl (12.0-15.5); IMMATURE GRANULOCYTE % 0.5 % (0-3.0); LYMPH # 1.3 10^3/uL (1.5-4.5); MEAN CORPUSCULAR HEMOGLOBIN 34.6 pg (27.0-33.0); MEAN CORPUSCULAR HGB CONC 32.6 g/dl (32.0-36.5); MEAN CORPUSCULAR VOLUME 106.2 fl (80.0-96.0); MONO # 0.6 10^3/uL (0.0-0.8); MONO % 9.7 % (0.0-5.0); RED BLOOD COUNT 3.06 10^6/uL (4.00-5.40); RED CELL DISTRIBUTION WIDTH 12.7 % (11.5-14.5); WHITE BLOOD COUNT 6.1 10^3/uL (4.0-10.0)
[2018-07-18 06:16] LABS: ANION GAP 6 MEQ/L (8-16); BLOOD UREA NITROGEN 12 MG/DL (7-18); CALCIUM LEVEL 8.4 MG/DL (8.8-10.2); CARBON DIOXIDE LEVEL 31 MEQ/L (21-32); CHLORIDE LEVEL 105 MEQ/L (98-107); CREATININE FOR GFR 0.59 MG/DL (0.55-1.30); GLOMERULAR FILTRATION RATE > 60.0 (>39); GLUCOSE, FASTING 99 MG/DL (70-100); MAGNESIUM LEVEL 1.8 MG/DL (1.8-2.4); POTASSIUM SERUM 3.4 MEQ/L (3.5-5.1); SODIUM LEVEL 142 MEQ/L (136-145)
[2018-07-18 06:38] LABS: POS COUNT POS FLAG; SUSPECT SAMPLE POS FLAG
[2018-07-18] MEDS: POTASSIUM CHLORIDE 10 MEQ SR TABLET PO (10:02)
[2018-07-18] MEDS: THIAMINE 100 MG TAB PO (10:03)
[2018-07-18] MEDS: MULTIVITAMINS/MINERALS THERAP 1 TAB PO (10:03)
[2018-07-18] MEDS: FOLIC ACID 1 MG TAB PO (10:03)
[2018-07-18] MEDS: PANTOPRAZOLE 40MG TAB (PROTONIX) PO (10:03)
[2018-07-18] MEDS: chlordiazePOXIDE 25 MG CAP PO ×2 (10:03→20:43)
[2018-07-18] MEDS: DULoxetine 30 MG CAP (CYMBALTA) PO (10:04)
[2018-07-18] MEDS: METOPROLOL SUCC *XL* 25MG TAB (TopROL *XL*) PO (10:04)
[2018-07-18] MEDS: traZODone 50 MG TAB PO (20:43)
[2018-07-19 06:19] LABS: BASO % 0.6 % (0.0-1.0); EOS # 0.1 10^3/uL (0.0-0.50); EOS % 1.7 % (0.0-3.0); HEMATOCRIT 33.5 % (36.0-47.0); HEMOGLOBIN 10.8 g/dl (12.0-15.5); IMMATURE GRANULOCYTE % 0.8 % (0-3.0); LYMPH # 1.5 10^3/uL (1.5-4.5); LYMPH % 22.4 % (24.0-44.0); MEAN CORPUSCULAR HEMOGLOBIN 34.5 pg (27.0-33.0); MEAN CORPUSCULAR HGB CONC 32.2 g/dl (32.0-36.5); MONO # 0.6 10^3/uL (0.0-0.8); MONO % 9.3 % (0.0-5.0); NEUTROPHILS # 4.3 10^3/uL (1.8-7.7); NEUTROPHILS % 65.2 % (36.0-66.0); RED BLOOD COUNT 3.13 10^6/uL (4.00-5.40); RED CELL DISTRIBUTION WIDTH 12.8 % (11.5-14.5); WHITE BLOOD COUNT 6.6 10^3/uL (4.0-10.0)
[2018-07-19 06:45] LABS: ALBUMIN 2.4 GM/DL (3.2-5.2); ALBUMIN/GLOBULIN RATIO 0.71 (1.00-1.93); ALKALINE PHOSPHATASE 79 U/L (45-117); ALT/SGPT 37 U/L (12-78); ANION GAP 7 MEQ/L (8-16); AST/SGOT 28 U/L (7-37); BILIRUBIN,TOTAL 0.7 MG/DL (0.2-1.0); BLOOD UREA NITROGEN 10 MG/DL (7-18); CALCIUM LEVEL 8.7 MG/DL (8.8-10.2); CARBON DIOXIDE LEVEL 30 MEQ/L (21-32); CHLORIDE LEVEL 104 MEQ/L (98-107); CREATININE FOR GFR 0.62 MG/DL (0.55-1.30); GLOMERULAR FILTRATION RATE > 60.0 (>39); GLUCOSE, FASTING 88 MG/DL (70-100); MAGNESIUM LEVEL 1.8 MG/DL (1.8-2.4); POTASSIUM SERUM 3.7 MEQ/L (3.5-5.1); SODIUM LEVEL 141 MEQ/L (136-145); TOTAL PROTEIN 5.8 GM/DL (6.4-8.2)
[2018-07-19 06:50] LABS: POS COUNT POS FLAG; SUSPECT SAMPLE POS FLAG
[2018-07-19] MEDS: DULoxetine 30 MG CAP (CYMBALTA) PO (11:08)
[2018-07-19] MEDS: chlordiazePOXIDE 25 MG CAP PO ×2 (11:08→20:24)
[2018-07-19] MEDS: FOLIC ACID 1 MG TAB PO (11:08)
[2018-07-19] MEDS: PANTOPRAZOLE 40MG TAB (PROTONIX) PO (11:08)
[2018-07-19] MEDS: THIAMINE 100 MG TAB PO (11:08)
[2018-07-19] MEDS: MULTIVITAMINS/MINERALS THERAP 1 TAB PO (11:08)
[2018-07-19] MEDS: ENOXAPARIN 40 MG/0.4 ML SYRINGE (J1650) SC (11:09)
[2018-07-19] MEDS: METOPROLOL SUCC *XL* 25MG TAB (TopROL *XL*) PO (11:09)
[2018-07-19] MEDS: traZODone 50 MG TAB PO (20:24)
[2018-07-20] MEDS: ACETAMINOPHEN TAB 650MG DOSE (2X325MG) PO (04:15)
[2018-07-20 07:26] LABS: BASO % 0.7 % (0.0-1.0); EOS # 0.1 10^3/uL (0.0-0.50); EOS % 2.3 % (0.0-3.0); HEMATOCRIT 33.3 % (36.0-47.0); IMMATURE GRANULOCYTE % 0.5 % (0-3.0); LYMPH # 1.6 10^3/uL (1.5-4.5); LYMPH % 25.5 % (24.0-44.0); MEAN CORPUSCULAR HEMOGLOBIN 35.1 pg (27.0-33.0); MEAN CORPUSCULAR VOLUME 106.4 fl (80.0-96.0); MONO # 0.6 10^3/uL (0.0-0.8); MONO % 9.4 % (0.0-5.0); NEUTROPHILS # 3.8 10^3/uL (1.8-7.7); NEUTROPHILS % 61.6 % (36.0-66.0); RED BLOOD COUNT 3.13 10^6/uL (4.00-5.40); RED CELL DISTRIBUTION WIDTH 12.8 % (11.5-14.5); WHITE BLOOD COUNT 6.2 10^3/uL (4.0-10.0)
[2018-07-20 07:49] LABS: POS COUNT POS FLAG; SUSPECT SAMPLE POS FLAG
[2018-07-20 07:52] LABS: ANION GAP 7 MEQ/L (8-16); BLOOD UREA NITROGEN 11 MG/DL (7-18); CALCIUM LEVEL 8.8 MG/DL (8.8-10.2); CARBON DIOXIDE LEVEL 29 MEQ/L (21-32); CHLORIDE LEVEL 105 MEQ/L (98-107); CREATININE FOR GFR 0.63 MG/DL (0.55-1.30); GLOMERULAR FILTRATION RATE > 60.0 (>39); GLUCOSE, FASTING 93 MG/DL (70-100); MAGNESIUM LEVEL 1.9 MG/DL (1.8-2.4); POTASSIUM SERUM 3.7 MEQ/L (3.5-5.1); SODIUM LEVEL 141 MEQ/L (136-145)
[2018-07-20] MEDS: THIAMINE 100 MG TAB PO (08:46)
[2018-07-20] MEDS: DULoxetine 30 MG CAP (CYMBALTA) PO (08:47)
[2018-07-20] MEDS: PANTOPRAZOLE 40MG TAB (PROTONIX) PO (08:47)
[2018-07-20] MEDS: FOLIC ACID 1 MG TAB PO (08:47)
[2018-07-20] MEDS: ENOXAPARIN 40 MG/0.4 ML SYRINGE (J1650) SC ×2 (08:47→09:00)
[2018-07-20] MEDS: MULTIVITAMINS/MINERALS THERAP 1 TAB PO (08:47)
[2018-07-20] MEDS: METOPROLOL SUCC *XL* 25MG TAB (TopROL *XL*) PO (08:51)
[2018-07-20] MEDS: chlordiazePOXIDE 25 MG CAP PO ×2 (08:54→20:23)
[2018-07-20] MEDS: traZODone 50 MG TAB PO (20:23)
[2018-07-21] MEDS: MULTIVITAMINS/MINERALS THERAP 1 TAB PO (08:52)
[2018-07-21] MEDS: METOPROLOL SUCC *XL* 25MG TAB (TopROL *XL*) PO (08:52)
[2018-07-21] MEDS: FOLIC ACID 1 MG TAB PO (08:53)
[2018-07-21] MEDS: THIAMINE 100 MG TAB PO (08:53)
[2018-07-21] MEDS: ENOXAPARIN 40 MG/0.4 ML SYRINGE (J1650) SC (08:53)
[2018-07-21] MEDS: PANTOPRAZOLE 40MG TAB (PROTONIX) PO (08:53)
[2018-07-21] MEDS ORDERED: DULoxetine 30 MG CAP (CYMBALTA) PO (21:00)
== END 2018-07-21 17:06 | disposition home or self-care (01) | DRG 641 ==
LOC: M MS4PR 07-16 22:45 → M MSPAV 07-18 14:40 → M ED 10:19 → M MSPAV 07-15 14:53 → M ED INP 16:48 → M PCU 18:17
PROVIDERS: Internal Medicine
DX: E87.2 Acidosis (principal); N39.0 Urinary tract infection, site not specified; F10.229 Alcohol dependence with intoxication, unspecified; E87.0 Hyperosmolality and hypernatremia; R42 Dizziness and giddiness; R53.1 Weakness; E66.01 Morbid (severe) obesity due to excess calories; K21.9 Gastro-esophageal reflux disease without esophagitis; F32.9 Major depressive disorder, single episode, unspecified; M79.7 Fibromyalgia; I10 Essential (primary) hypertension; Z79.899 Other long term (current) drug therapy; Z88.5 Allergy status to narcotic agent; Z96.652 Presence of left artificial knee joint; D53.9 Nutritional anemia, unspecified

== ENCOUNTER 2018-07-26 10:22 | Outpatient (RCR) | payer MEDICARE, OTHER | END 2018-08-16 | LOC: M PT 10:22 | DX: R53.1 Weakness (principal) | CPT/HCPCS: 97110 ==

== ENCOUNTER → 2018-07-29 | Outpatient (CLI) | payer MEDICARE, OTHER | LOC: M OUTALCOH 10:38 | DX: Z13.9 Encounter for screening, unspecified (principal); F10.20 Alcohol dependence, uncomplicated | CPT/HCPCS: H0001 ==

== ENCOUNTER 2018-08-14 13:14 | Outpatient (RCR) | payer MEDICARE, OTHER | END 2018-08-16 | LOC: M OUTALCOH 13:14 | DX: F10.20 Alcohol dependence, uncomplicated (principal) | CPT/HCPCS: 97110 ==

== ENCOUNTER 2018-08-23 10:03 | Outpatient (RCR) | payer MEDICARE, OTHER ==
[~2018-08-23 10:03] MED LIST changes: +DULO1CAP3 PO; -FOLI1TAB4 PO; +FOLI1TAB5 PO; +METO1TAB32 PO; +TRAZ-160; +TRAZ-160 PO; -TRAZ50TA11; -TRAZ50TA11 PO; +VITMTA PO; -ZOFR20TA PO; +ZOFR4TAB16 PO
== END 2018-09-16 ==
LOC: M PT 10:03
PROVIDERS: ATTEND Internal Medicine
DX: F10.20 Alcohol dependence, uncomplicated (principal)
CPT/HCPCS: 97110; G8978; G8979

== ENCOUNTER 2018-08-23 11:00 | Outpatient (RCR) | payer MEDICARE, OTHER ==
[~2018-08-23 11:00] MED LIST changes: +FOLI1TAB11 PO; -FOLI1TAB5 PO
== END 2018-09-16 ==
LOC: M OUTALCOH 11:00
PROVIDERS: ATTEND Psychiatry & Neurology Psychiatry
DX: F10.20 Alcohol dependence, uncomplicated (principal)
CPT/HCPCS: H0050 ×2

== ENCOUNTER → 2019-05-27 | Outpatient (CLI) | payer MEDICARE, OTHER ==
[~2019-05-27] MED LIST changes: -DULO1CAP2; -DULO1CAP2 PO; -DULO1CAP3 PO; +DULO1CAP5; +DULO1CAP5 PO; +DULO1CAP6 PO; -OMEP20CA3; +OMEP20CA4; -TRAZ-160; -TRAZ-160 PO; +TRAZ-252; +TRAZ-252 PO
== END ==
LOC: M OUTALCOH 09:03
PROVIDERS: ATTEND Psychiatry & Neurology Psychiatry
DX: F10.20 Alcohol dependence, uncomplicated (principal)

== ENCOUNTER → 2019-06-16 | Outpatient (RCR) | payer MEDICARE, OTHER ==
[~2019-06-16] MED LIST changes: +OMEP-172; -OMEP20CA4; -OMEP40CA2; -OMEP40CA2 PO; +OMEP40CA97; +OMEP40CA97 PO
== END ==
LOC: M OUTALCOH 05-28 13:25
PROVIDERS: ATTEND Psychiatry & Neurology Psychiatry
DX: F10.20 Alcohol dependence, uncomplicated (principal)

== ENCOUNTER 2019-07-15 10:00 | Outpatient (RCR) | payer MEDICARE, OTHER ==
[~2019-07-15 10:00] MED LIST changes: -OMEP-172; +OMEP20CA4
== END 2019-07-17 ==
LOC: M OUTALCOH 10:00
PROVIDERS: ATTEND Psychiatry & Neurology Psychiatry
DX: F10.20 Alcohol dependence, uncomplicated (principal)

== ENCOUNTER 2019-08-12 11:00 | Outpatient (RCR) | payer MEDICARE, OTHER | END 2019-08-16 | LOC: M OUTALCOH 11:00 | PROVIDERS: ATTEND Psychiatry & Neurology Psychiatry | DX: F10.20 Alcohol dependence, uncomplicated (principal) ==

== ENCOUNTER 2019-08-26 10:00 | Outpatient (RCR) | payer MEDICARE, OTHER ==
[~2019-08-26 10:00] MED LIST changes: +OMEP-172; -OMEP20CA4
== END 2019-09-16 ==
LOC: M OUTALCOH 10:00
PROVIDERS: ATTEND Psychiatry & Neurology Psychiatry
DX: F10.20 Alcohol dependence, uncomplicated (principal)

== ENCOUNTER 2020-02-01 16:42 | Inpatient (IN) | payer MEDICARE, OTHER ==
[~2020-02-01] VITALS: Ht 167.6 cm; Wt 89.8 kg
[~2020-02-01 16:42] MED LIST changes: -LORA0.5T11; -LORA0.5T11 PO; +LORA0.5T5; +LORA0.5T5 PO; -OMEP-172; +OMEP1CAP73; +ONDA-83; -ONDA4TAB5
[2020-02-01] MEDS ORDERED: LORA2CON5 PO (16:57)
[2020-02-01] MEDS ORDERED: MULTIVITAMIN -ADULT INJECTION 10 ML, THIAMINE INJection 100 MG, FOLIC ACID 1 MG in NS 1... IV ONE (17:00)
--- NOTE | 2020-02-01 17:52 | REPVR ---
PROCEDURE INFORMATION: Exam: CT Head Without Contrast Exam date and time: 02/01/2020 5:16 PM Age: 74 years old Clinical indication: Injury or trauma; Fall; Initial encounter; Blunt trauma (contusions or hematomas); Dizziness and other: Left foot drop; Additional info: Dizzy - fall, left foot drop TECHNIQUE: Imaging protocol: Computed tomography of the head without contrast. Radiation optimization: All CT scans at this facility use at least one of these dose optimization techniques: automated exposure control; mA and/or kV adjustment per patient size (includes targeted exams where dose is matched to clinical indication); or iterative reconstruction. COMPARISON: CT Head without contrast 07/20/2018 4:26 AM FINDINGS: Brain: No intracranial mass, mass effect or midline shift. No acute intracranial hemorrhage. No CT evidence of acute cortical infarct. Ventricles: Ventricles, cisterns, and sulci are normal in size for age. Bones/joints: No calvarial fracture or destructive process. Sinuses: Imaged paranasal sinuses are clear. Mastoid air cells: Mastoid air cells are normally aerated. Orbits: Imaged orbits are unremarkable. Soft tissues: No focal extracranial soft tissue swelling. IMPRESSION: No acute or concerning focal intracranial abnormality. Electronically signed by: Cecil Aranda On 02/01/2020 17:52:37 PM
[2020-02-01 18:30] LABS: BASO # 0.1 10^3/uL (0.0-0.2); BASO % 1.7 % (0.0-1.0); EOS # 0.1 10^3/uL (0.0-0.5); EOS % 1.3 % (0.0-3.0); HEMATOCRIT 39.5 % (36.0-47.0); HEMOGLOBIN 13.2 g/dl (12.0-15.5); LYMPH # 1.6 10^3/uL (1.5-5.0); LYMPH % 29.6 % (24.0-44.0); MEAN CORPUSCULAR HEMOGLOBIN 34.6 pg (27.0-33.0); MEAN CORPUSCULAR HGB CONC 33.4 g/dl (32.0-36.5); MEAN CORPUSCULAR VOLUME 103.7 fl (80.0-96.0); MONO # 0.8 10^3/uL (0.0-0.8); MONO % 14.2 % (0.0-5.0); NEUTROPHILS # 2.9 10^3/uL (1.5-8.5); NEUTROPHILS % 52.8 % (36.0-66.0); RED BLOOD COUNT 3.81 10^6/uL (4.00-5.40); WHITE BLOOD COUNT 5.4 10^3/uL (4.0-10.0)
[2020-02-01] MEDS ORDERED: ONDA-83 PO (18:30)
[2020-02-01] MEDS ORDERED: LORA0.5T5 PO (18:30)
[2020-02-01] MEDS ORDERED: TRAZ-257 PO (18:30)
[2020-02-01] MEDS ORDERED: CELE1CAP4 PO (18:31)
[2020-02-01 18:48] LABS: PLTBLUE- EDTA FREE CALC 163 K/mm3 (172-450)
[2020-02-01 18:56] LABS: PLTBLUE- EDTA FREE MACHINE 148 10^3/uL (172-450)
[2020-02-01 19:14] LABS: ERYTHROCYTE SEDIMENTATION RATE 23 mm/hr (0-30)
[2020-02-01] MEDS ORDERED: NS 1,000 ML IV ONE (19:15)
[2020-02-01 19:58] LABS: ALT/SGPT 150 IU/L (0-32); BILIRUBIN,DIRECT 0.4 MG/DL (0.0-0.2); BILIRUBIN,TOTAL 0.8 MG/DL (0.2-1.0); CK-MB VALUE MASS 2.4 NG/ML (<3.6); CPK CREATINE PHOSPHOKINASE 90 U/L (26-192); MB/CK RELATIVE INDEX 2.66 (< OR =4)
[2020-02-01 19:59] LABS: ALBUMIN 3.3 GM/DL (3.2-5.2); MAGNESIUM LEVEL 2.2 MG/DL (1.8-2.4); SALICYLATE LEVEL < 1.7 MG/DL (5.0-30.0); TOTAL PROTEIN 7.3 GM/DL (6.4-8.2); TROPONIN I < 0.02 NG/ML (< 0.10)
[2020-02-01 20:00] LABS: ACETAMINOPHEN LEVEL < 2.0 UG/ML (10.0-30.0); C REACTIVE PROTEIN QUANTITATIV < 0.30 MG/DL (0.00-0.30); FREE T4 0.88 NG/DL (0.76-1.46)
[2020-02-01 20:07] LABS: BLOOD UREA NITROGEN 15 MG/DL (7-18); CALCIUM LEVEL 8.6 MG/DL (8.8-10.2); CARBON DIOXIDE LEVEL 27 mmol/L (20-29); CHLORIDE LEVEL 97 MEQ/L (98-107); CREATININE FOR GFR 0.85 MG/DL (0.55-1.30); GLOMERULAR FILTRATION RATE > 60.0 (>39); GLUCOSE, FASTING 85 MG/DL (70-100); POTASSIUM SERUM 4.5 MEQ/L (3.5-5.1); SODIUM LEVEL 136 MEQ/L (136-145)
--- NOTE | 2020-02-01 21:13 | ECGEPIP ---
[facility] - ED Test Date: 2020-02-01 Pat Name: FLORIDA AQUINO Department: Room: - Gender: Female Chute Tapper: tommy : 1945 Requested By: Deshawn Mccoy Order Number: [id number] Reading MD: Isis Richmond Measurements Intervals [place] Rate: 82 P: 14 SD: 145 QRS: 8 QRSD: 94 T: 38 QT: 378 QTc: 443 Interpretive Statements SINUS RHYTHM POSSIBLE LEFT ATRIAL ENLARGEMENT DECREASED RATE 07/13/18 Electronically Signed on 02-01-2020 21:13:24 EDT by Isis Richmond
--- NOTE | 2020-02-01 21:13 | REPVR ---
PROCEDURE INFORMATION: Exam: MR Lumbar Spine Without Contrast. Exam date and time: 02/01/2020 8:54 PM Age: 74 years old Clinical indication: Weakness; Additional info: Left foot drop TECHNIQUE: Imaging protocol: Multiplanar magnetic resonance images of the lumbar spine without intravenous contrast. COMPARISON: No relevant prior studies available. FINDINGS: Lumbar vertebrae show no acute segmental malalignment. Minimal degenerative anterolisthesis L4-L5 measures 2 mm. Hypertrophic facets are present but no pars defects. Vertebral body height and morphology are maintained. No linear fracture or concerning osseous lesion. Degenerative reactive endplate changes are present L4-L5 and particularly T11-12 and T12-L1.. Degenerative disc desiccation is present with loss of T2 signal at all levels. Disc height loss at the T11-12 and T12-L1 levels is present and also to a mild degree L4-L5 and L3-L4 Conus terminates at the 1-2 level with no abnormality in the conus or distal cord. Normal dependent layering of cauda equina nerve roots. T11-12 demonstrates mild canal narrowing secondary to a posterior osteophyte and minimal canal narrowing is seen at T12-L1 also secondary to posterior disc bulge and osteophyte T12-L1: No canal stenosis or foraminal narrowing. L1-2: No canal stenosis or foraminal narrowing. L2-3: No canal stenosis or foraminal narrowing. L3-4: Minimal disc bulge. No canal stenosis or foraminal narrowing. Hypertrophic facet and ligamentum flavum arthropathy is present at this level L4-5: Grade 1 spondylolisthesis with disc bulge and hypertrophic ligamentum flavum and facet arthropathy results in mild spinal canal stenosis and bilateral inferior recess stenosis. L5-S1: No canal stenosis or foraminal narrowing. No enlarged lymph nodes or prevertebral soft tissue abnormality. Imaged distal abdominal aorta is normal in caliber. IMPRESSION: No acute or destructive process and no explanation for foot drop. No myelopathy changes of the cord and no evidence of cauda equina nerve root arachnoiditis Mild degenerative spinal canal stenosis and neural foraminal stenosis L4-L5 secondary to multifactorial degenerative change. Lower thoracic spine degenerative disc disease without neural compression Electronically signed by: Cecil Aranda On 02/01/2020 21:13:29 PM
[2020-02-01] MEDS ORDERED: MOM 30ML SUSPENSION UDC PO PRN (22:45)
[2020-02-01] MEDS ORDERED: LOMOTIL 2.5MG/0.025MG TABLET PO PRN (22:45)
[2020-02-01] MEDS ORDERED: CelecoXIB (CeleBREX) 100 MG CAP PO PRN (22:45)
[2020-02-01] MEDS ORDERED: OMEPRAZOLE 20 MG CAP PO PRN (22:45)
[2020-02-01] MEDS ORDERED: ONDANSETRON 4 MG TAB PO PRN (22:45)
[2020-02-01] MEDS ORDERED: LORazepam 2 MG TAB PO PRN (22:45)
[2020-02-02] MEDS: traZODone 100 MG TAB PO SCH ×2 (01:21→22:01)
[2020-02-02] MEDS: THIAMINE 100 MG TAB PO SCH ×3 (01:21→22:01)
[2020-02-02] MEDS: NS 1,000 ML IV SCH ×3 (01:21→19:25)
[2020-02-02] MEDS: HEPARIN SOD (PORCINE) 5000UNITS/ML VIAL (J1644 PER 1000UNITS) SC SCH ×3 (01:23→22:01)
[2020-02-02 01:30] VITALS: BP 136/79
[2020-02-02] MEDS: DULoxetine 30 MG CAP (CYMBALTA) PO SCH ×2 (01:32→22:01)
--- NOTE | 2020-02-02 03:26 | HPEPDOC ---
[facility] Medical History & Physical Date of Admission February 01, 2020 Date of Service: February 01, 2020 Attending Physician: JENNIE BERTRAND MD History and Physical Chief Complaint 74-year-old W who presented to the ED with complaints of weakness, dizziness and lightheadedness. History of Present Illness 74 yo W with long standing alcohol use disorder, depression, fibromyalgia, s/p Angie-en-Y (2009), GERD, who presented to the ED with complaints of weakness, dizziness and lightheadedness. The chronicity of her symptoms is unclear but sounds like she and her returned from their winter home, on their [place] in [place] approximately 2 weeks ago and since she got back, she has felt weak, dizzy with standing, poor PO (which is chronic for her, eats mostly dinner) and has lightheadedness without vertigo. She denied any fever, chills, recent URI, N/V/D/sick contacts. She also reports a 2 week history of L foot drop without recent trauma history. Her only trauma history she can connect to it is a fall in 10/2019 for which she had XR that were negative for fractures and she was fine after. her last drink was around 4pm before she came to the ED. In the ED she was hemodynamically stable, afebrile, in no distress and breathing comfortably on room air. Workup was notable for lactate of 3.9 with normal CBC without anemia, WBC 5.4, Cr 0.85, CK 90, stable transaminitis with AST 277, ALT 150 without elevated bilis, EKG with NSR, troponin negative, TSH and free T4 wnl, ethyl alcohol level of 0.18. She had CT head that was without acute intracranial abnormalities and given her foot drop, had a lumber MRI that showed no acute destructive process and no explaination for foot drop without myelopathy changes of the cord and no evidence of cauda equina nerve root arachnoiditis. Of note, orthostatics were positive in the ED. She is now being admitted to medicine for hydration, treatment of impending alcohol withdrawal and will seek neurology consult for her foot drop as well as PT/OT. Past Medical History Alcohol use disorder Depression Fibromyalgia s/p Angie-en-Y (2009) GERD Surgical History Angie-en-Y 2009 Left knee total arthroplasty 2015 Left toe open reduction internal fixation Bilateral tubal ligation Tonsillectomy Family History - Family history of alcoholism and cirrhosis, obesity, lung cancer, Wegeners granulomatosis, history of stroke and coronary artery disease Social History - Active excessive alcohol consumption with dependence - No tobacco or illicit drugs - recently travelled from [place] - Lives with in [place] - Retired nurse Review of Systems: 10 point ROS was reviewed and the only positive elements are stated in the HPI. The rest of the ROS was otherwise negative Physical Exam: - Vitals: HDS, afebrile, breathing comfortably on room air. See details below - General: Sitting up in bed, in no acute distress, speaking in full sentences - HEENT: NCAT, EOMI, clear posterior oropharynx, dry MM - CVS: RRR, +S1S2, no mrg - Lungs: Clear to auscultation, no wheezing, rales or rhonchi - Abdomen: Obese, normoactive, soft, NTND, no distended veins or caput - Extremities: no LE edema, perhaps trace non-pitting L ankle edema, otherwise WWP, 2+ DP pulses - Neuro: CN 2-12 intact, UE with 5/5 strength and tone, LE wtih 5/5 strength and tone and normal sensation, however L foot unable to dorsiflex. No issues plantarflexing - Skin: No visible rashes Labs: see below Imaging: as described above Assessment: 74 yo W with long standing alcohol use disorder, depression, fibromyalgia, s/p Angie-en-Y (2009), GERD, who presented to the ED with complaints of weakness, dizziness and lightheadedness now being admitted to medicine for hydration, treatment of impending alcohol withdrawal and will seek neurology consult for her foot drop as well as PT/OT. Plan: Weakness and orthostatic dizziness - likely 2/2dehydration and poor nutritional status - CT head showed no acute intracranial abnormalities - Was orthostatic in the ED, now s/p 1L NS and on 100cc/hr fluids overnight, to check orthostatic vital signs in the AM for improvement - Will continue with telemetry monitoring as she reported episodic palpitations Foot drop: -MRI lumbar spine did not yield explanation -CT head without noted pathology -rest of her neurological exam was wnl -will consult Dr. Oscar in the morning -may need repeat imaging for potential fibula fracture that could be causing injury to peroneal nerve but without recent trauma unclear -PT/OT Lactic acidosis - likely 2/2 dehydration - Will continue with IV fluid hydration after receiving banana bag Chronically elevated liver enzymes - Likely 2/2 alcohol abuse unlikely to be 2/2 hepatitis - Will defer hep panel as it has been checked before and was negative and her transaminitis is chronic - monitor for now. No imaging at this time with no abdominal complaints HTN - BP appears well controlled - Will c/w Metoprolol succinate with holding parameters Alcohol use disorder with dependence - Patient has a significant history of alcohol abuse and drinks >2 L of wine daily - Alcohol level elevated on toxicology screen - CIWA protocol with symptom triggered ativan Macrocytic anemia - Will check B12 / Folate, Reticulocyte count Depression / Fibromyalgia - Patient follows with a therapist as an outpatient and recently got some names for psychiatrists she will pursue seeing in the outpatient setting. She is struggling with the recent what would have been the 50th birthday of her son who passed 3y ago, in combination with the recent isolation due to covid-19. - c/w Trazadone and Duloxetine Morbid obesity s/p Angie-en-Y (2009) -given the macrocytosis may have some malabsorption in combination with poor PO, will place a dietary consult GERD - continue home PPI DVT prophylaxis: TEDs Diet: regular Dispo: Medsurg with tele Vital Signs Vital Signs Date Time Temp Pulse Resp B/P (MAP) Pulse Ox O2 Delivery O2 Flow Rate FiO2 02/02/20 01:30 98.4 70 18 136/79 (98) 99 Room Air Laboratory Data Labs 24H Laboratory Tests 2 02/01/20 17:27: Platelet Count, EDTA Free 163L 02/01/20 17:29: Anion Gap 12, Glomerular Filtration Rate > 60.0, Lactic Acid Level 3.9*H, Calcium Level 8.6L, Magnesium Level 2.2, Total Bilirubin 0.8, Direct Bilirubin 0.4H, Aspartate Amino Transf (AST/SGOT) 277H, Alanine Aminotransferase (ALT/SGPT) 150H, Alkaline Phosphatase 121H, Total Creatine Kinase 90, Creatine K inase MB 2.4, Creatine Kinase MB Relative Index 2.66, Troponin I < 0.02, C- Reactive Protein, Quantitative < 0.30, Total Protein 7.3, Albumin 3.3, Albumin/Globulin Ratio 0.8L, Thyroid Stimulating Hormone (TSH) 2.370, Free Thyroxine 0.88, Salicylates Level < 1.7L, Acetaminophen Level < 2.0L, Ethyl Alc ohol Level 0.180H 02/01/20 18:04: Immature Granulocyte % (Auto) 0.4, Neutrophils (%) (Auto) 52.8, Lymphocytes (%) (Auto) 29.6, Monocytes (%) (Auto) 14.2H, Eosinophils (%) (Auto) 1.3, Basophils (%) (Auto) 1.7H, Neutrophils # (Auto) 2.9, Lymphocytes # (Auto) 1.6, Monocytes # (Auto) 0.8, Eosinophils # (Auto) 0.1, Basophils # (Auto) 0.1, Nucleated Red Blood Cells % (auto) 0.0, Erythrocyte Sedimentation Rate 23 02/01/20 23:24: Lactic Acid Followup at 4 Hours 3.4*H CBC/BMP Laboratory Tests 02/01/20 17:29 02/01/20 18:04 Home Medications Scheduled Duloxetine Hcl (Duloxetine HCl) 60 Mg Cap, 60 MG PO QPM Metoprolol Succinate (Metoprolol Succinate) 25 Mg Tab, 25 MG PO DAILY Trazodone HCl (Trazodone HCl) 100 Mg Tablet, 100 MG PO QHS PATIENT STATES SOMETIMES TAKES 15OMG IF NEEDED Scheduled PRN Celecoxib (Celebrex) 200 Mg Capsule, 200 MG PO DAILY PRN for PAIN Diphenoxylate HCl/Atropine (Lomotil 2.5-0.025 mg Tablet) 1 Tab Tab, 1 TAB PO PRN PRN for DIARRHEA Lorazepam (Lorazepam) 0.5 Mg Tablet, 0.5 MG PO BID PRN for ANXIETY Omeprazole (Omeprazole) 40 Mg Cap, 40 MG PO BID PRN for INDIGESTION Ondansetron HCl (Ondansetron HCl) 4 Mg Tablet, 4 MG PO TID PRN for NAUSEA OR VOMITING Allergies Coded Allergies: hydromorphone (Verified Allergy, Severe, resp arrest, 02/01/20) A-FIB/CHADSVASC A-FIB History Current/History of A-Fib/PAF?: No Current PO Anticoag Therapy: No Age/Risk Factor Scoring CHADSVASC: CHADSVASC Response (Comments) Value Age Risk Factor Age 65-74 years old 1 Gender Risk Factor Female 1 Hx of CHF No 0 Hx of HTN Yes 1 Hx of Stroke/TIA/or VTE No 0 Hx of Diabetes No 0 Hx of Vascular Disease No 0 Total 3 Treatment Treatment ordered: NONE Reason Anticoagulant not given: Not indicated/[id number] JENNIE BERTRAND MD February 02, 2020 03:26
[2020-02-02 06:00] VITALS: BP_SYST 125; BP_SYST 134; BP_DIAS 59; BP_DIAS 79
[2020-02-02] MEDS: LORazepam 0.5 MG TAB PO PRN ×2 (06:10→22:01)
[2020-02-02 06:27] LABS: HEMATOCRIT 33.3 % (36.0-47.0); HEMOGLOBIN 11.1 g/dl (12.0-15.5); MEAN CORPUSCULAR HEMOGLOBIN 34.8 pg (27.0-33.0); MEAN CORPUSCULAR HGB CONC 33.3 g/dl (32.0-36.5); MEAN CORPUSCULAR VOLUME 104.4 fl (80.0-96.0); RED BLOOD COUNT 3.19 10^6/uL (4.00-5.40); WHITE BLOOD COUNT 3.7 10^3/uL (4.0-10.0)
[2020-02-02 06:55] LABS: ALBUMIN 2.7 GM/DL (3.2-5.2); ALT/SGPT 109 U/L (12-78); BILIRUBIN,TOTAL 1.6 MG/DL (0.2-1.0); BLOOD UREA NITROGEN 15 MG/DL (7-18); CALCIUM LEVEL 8.2 MG/DL (8.8-10.2); CARBON DIOXIDE LEVEL 28 MEQ/L (21-32); CHLORIDE LEVEL 102 MEQ/L (98-107); CREATININE FOR GFR 0.77 MG/DL (0.55-1.30); GLOMERULAR FILTRATION RATE > 60.0 (>39); GLUCOSE, FASTING 96 MG/DL (70-100); POTASSIUM SERUM 4.2 MEQ/L (3.5-5.1); SODIUM LEVEL 137 MEQ/L (136-145); TOTAL PROTEIN 5.9 GM/DL (6.4-8.2)
[2020-02-02] MEDS: METOPROLOL SUCC *XL* 25MG TAB (TopROL *XL*) PO SCH (09:26)
[2020-02-02] MEDS: FOLIC ACID 1 MG TAB PO SCH (09:27)
[2020-02-02] MEDS: MULTIVITAMINS/MINERALS THERAP 1 TAB PO SCH (09:27)
--- NOTE | 2020-02-02 09:49 | REP ---
PORTABLE CHEST X-RAY: SINGLE VIEW. HISTORY: Drug overdose. COMPARISON STUDY: July 13, 2018 FINDINGS: Monitoring electrodes overlie the chest. Right hemidiaphragm remains elevated. There is platelike atelectasis in the right base. No acute infiltrate is seen. There is no evidence of pleural nohemi pleural effusion or pulmonary edema. IMPRESSION: Elevated right hemidiaphragm. Otherwise no acute disease. Electronically Signed by Hermann Gonzalez MD 02/02/2020 10:25 A
[2020-02-02 11:10] LABS: FOLATE 9.6 NG/ML (>5.4)
[2020-02-02 11:12] LABS: VITAMIN B12 LEVEL 564 PG/ML
[2020-02-02 11:13] LABS: FOLATE 5.6 NG/ML
[2020-02-02 14:00] VITALS: BP 137/76
--- NOTE | 2020-02-02 15:23 | IPNPDOC ---
Date Seen The patient was seen on 02/02/20. Progress Note SUBJECTIVE: Patient was admitted today 02/02/2024, EtOH and foot drop, follow-up with neurology. OBJECTIVE PHYSICAL EXAMINATION: VITAL SIGNS: Please see below. GENERAL: No distress HEENT: Normocephalic, atraumatic, moist mucous membranes NECK: Supple CARDIOVASCULAR EXAMINATION: S1, S2 RESPIRATORY EXAMINATION: CTAB ABDOMINAL EXAMINATION: Soft, nontender, nondistended, positive bowel sounds EXTREMITIES: no edema SKIN: No rash NEUROLOGICAL EXAMINATION: Alert and oriented 3, no focal deficits, appears tremulous PSYCHIATRIC EXAMINATION: Calm and cooperative, appropriate affect Assessment and plan: Pt is a 74 yoF with long standing ETOH use disorder, depression, fibromyalgia, s/p Angie-en-Y (2009), GERD, who presented to the ED with complaints of weakness, dizziness and lightheadedness now being admitted to medicine for hydration, treatment of impending alcohol withdrawal and will seek neurology consult for her foot drop as well as PT/OT. Inpatient, telemetry--c/o palpitations. #Weakness and orthostatic dizziness - likely 2/2 dehydration and poor nutritional status, complicated by EtOH consumption with neg CT head, will reassess orthostasis status post IVF -CIWA protocol #Alcohol use disorder with dependence - Patient has a significant history of alcohol abuse and drinks >2 L of wine daily, +Alcohol level elevated - CIWA protocol with symptom triggered ativan #Foot drop, also consider pressure on the common peroneal nerve (L4/5), MRI lumbar spine: Grade 1 spondylolisthesis with disc bulge and hypertrophic momentum flavum with mild spinal stenosis and bilateral inferior recess stenosis. -CT head neg, AOx3, neurology consulted, called personnel research scientist # multiple times, unable to reach neurology -PT/OT, consider #Lactic acidosis - likely 2/2 dehydration - continue IVF #Chronically elevated liver enzymes - Likely 2/2 alcohol abuse unlikely to be 2/2 hepatitis, neg hepatitis panel #HTN: cont home Metoprolol succinate with holding parameters #Macrocytic anemia -interestingly, B12 / Folate, Reticulocyte count within normal limits #Depression / Fibromyalgia -follows outpatient therapist and psychiatrists, her son who passed 3y ago, +recent isolation due to covid-19 and compounding her depression presentation. -continue home Trazadone and Duloxetine #Morbid obesity s/p Angie-en-Y (2009): dietary consult #GERD: continue home PPI DVT prophylaxis: TEDs Diet: regular Dispo: Medsurg with tele, will change to inpatient, lasts alcohol consumption was the last 24 hours, will likely be withdrawn the next 48-72 hours VS, I&O, 24H, Fishbone Vital Signs/I&O Vital Signs Date Time Temp Pulse Resp B/P (MAP) Pulse Ox O2 Delivery O2 Flow Rate FiO2 02/02/20 14:00 96.8 101 19 137/76 (96) 95 Room Air I&O- Last 24 Hours up to 6 AM 02/02/20 06:00 Intake Total 2576.2 ml Balance 2576.2 ml Laboratory Data 24H LABS Laboratory Tests 2 02/01/20 17:27: Platelet Count, EDTA Free 163L 02/01/20 17:29: Anion Gap 12, Glomerular Filtration Rate > 60.0, Lactic Acid Level 3.9*H, Calcium Level 8.6L, Magnesium Level 2.2, Total Bilirubin 0.8, Direct Bilirubin 0.4H, Aspartate Amino Transf (AST/SGOT) 277H, Alanine Aminotransferase (ALT/SGPT) 150H, Alkaline Phosphatase 121H, Total Creatine Kinase 90, Creatine Kinase MB 2.4, Creatine Kinase MB Relative Index 2.66, Troponin I < 0.02, C- Reactive Protein, Quantitative < 0.30, Total Protein 7.3, Albumin 3.3, Albumin/Globulin Ratio 0.8L, Vitamin B12 Level 564, Folate 5.6, Thyroid Stimulating Hormone (TSH) 2.370, Free Thyroxine 0.88, Salicylates Level < 1.7L, Acetaminophen Level < 2.0L, Ethyl Alcohol Level 0.180H 02/01/20 18:04: Immature Granulocyte % (Auto) 0.4, Neutrophils (%) (Auto) 52.8, Lymphocytes (%) (Auto) 29.6, Monocytes (%) (Auto) 14.2H, Eosinophils (%) (Auto) 1.3, Basophils (%) (Auto) 1.7H, Neutrophils # (Auto) 2.9, Lymphocytes # (Auto) 1.6, Monocytes # (Auto) 0.8, Eosinophils # (Auto) 0.1, Basophils # (Auto) 0.1, Nucleated Red Blood Cells % (auto) 0.0, Erythrocyte Sedimentation Rate 23 02/01/20 23:24: Lactic Acid Followup at 4 Hours 3.4*H 02/02/20 06:04: Reticulocyte # (auto) 33.3, Nucleated Red Blood Cells % (auto) 0.0, Percent Reticulocyte Count 1.0, Reticulocyte Hemoglobin Equivalent 39.1H, Anion Gap 7L, Glomerular Filtration Rate > 60.0, Calcium Level 8.2L, Magnesium Level 2.0, Total Bilirubin 1.6#H, Aspartate Amino Transf (AST/SGOT) 183H, Alanine Aminotransferase (ALT/SGPT) 109H, Alkaline Phosphatase 101, Total Protein 5.9L, Albumin 2.7L, Albumin/Globulin Ratio 0.8L, Vitamin B12 Level 456, Folate 9.6 CBC/BMP Laboratory Tests 02/01/20 17:29 02/01/20 18:04 02/02/20 06:04 DA HOUSE MD February 02, 2020 15:23
[2020-02-02 21:50] VITALS: BP 140/86
[2020-02-02 22:00] VITALS: BP 140/86
[2020-02-03] MEDS: NS 1,000 ML IV SCH (05:22)
[2020-02-03 06:00] VITALS: BP 130/79
[2020-02-03 08:13] LABS: BASO % 0.9 % (0.0-1.0); EOS # 0.1 10^3/uL (0.0-0.5); EOS % 2.3 % (0.0-3.0); HEMATOCRIT 32.1 % (36.0-47.0); HEMOGLOBIN 10.5 g/dl (12.0-15.5); LYMPH # 0.8 10^3/uL (1.5-5.0); LYMPH % 22.9 % (24.0-44.0); MEAN CORPUSCULAR HEMOGLOBIN 34.9 pg (27.0-33.0); MEAN CORPUSCULAR HGB CONC 32.7 g/dl (32.0-36.5); MEAN CORPUSCULAR VOLUME 106.6 fl (80.0-96.0); MONO # 0.4 10^3/uL (0.0-0.8); MONO % 11.1 % (0.0-5.0); NEUTROPHILS # 2.1 10^3/uL (1.5-8.5); NEUTROPHILS % 62.5 % (36.0-66.0); PLATELET COUNT, AUTOMATED 101 10^3/uL (150-450); RED BLOOD COUNT 3.01 10^6/uL (4.00-5.40); WHITE BLOOD COUNT 3.4 10^3/uL (4.0-10.0)
[2020-02-03 08:42] LABS: ALBUMIN 2.5 GM/DL (3.2-5.2); ALT/SGPT 84 U/L (12-78); BILIRUBIN,TOTAL 1.2 MG/DL (0.2-1.0); BLOOD UREA NITROGEN 12 MG/DL (7-18); CALCIUM LEVEL 8.4 MG/DL (8.8-10.2); CARBON DIOXIDE LEVEL 29 MEQ/L (21-32); CHLORIDE LEVEL 108 MEQ/L (98-107); CREATININE FOR GFR 0.65 MG/DL (0.55-1.30); GLOMERULAR FILTRATION RATE > 60.0 (>39); GLUCOSE, FASTING 91 MG/DL (70-100); MAGNESIUM LEVEL 1.8 MG/DL (1.8-2.4); POTASSIUM SERUM 3.8 MEQ/L (3.5-5.1); SODIUM LEVEL 142 MEQ/L (136-145); TOTAL PROTEIN 5.4 GM/DL (6.4-8.2)
[2020-02-03 10:01] VITALS: BP 130/79
[2020-02-03] MEDS: FOLIC ACID 1 MG TAB PO SCH (10:01)
[2020-02-03] MEDS: METOPROLOL SUCC *XL* 25MG TAB (TopROL *XL*) PO SCH (10:01)
[2020-02-03] MEDS: THIAMINE 100 MG TAB PO SCH (10:01)
[2020-02-03] MEDS: MULTIVITAMINS/MINERALS THERAP 1 TAB PO SCH (10:02)
[2020-02-03] MEDS: HEPARIN SOD (PORCINE) 5000UNITS/ML VIAL (J1644 PER 1000UNITS) SC SCH (10:02)
[2020-02-03] MEDS ORDERED: FOLI1TAB11 PO (10:08)
[2020-02-03] MEDS ORDERED: THIA100TA PO (10:08)
[2020-02-03] MEDS ORDERED: MULTCAP PO (10:09)
[2020-02-03] MEDS: LORazepam 0.5 MG TAB PO PRN (10:49)
--- NOTE | 2020-02-03 12:11 | REP ---
FOCUSED LEFT POPLITEAL FOSSA SOFT TISSUE ULTRASOUND: HISTORY: Drop foot on the left. Rule out Shabazz's cyst. FINDINGS: Soft tissue sonography of the left popliteal fossa shows no evidence of cyst or aneurysm. The popliteal vein is fully compressible. No mass lesion is seen. IMPRESSION: Negative sonography of the left popliteal fossa. No evidence of Shabazz's cyst. Electronically Signed by Hermann Gonzalez MD 02/03/2020 12:33 P
--- NOTE | 2020-02-03 12:40 | DS.PDOC ---
Discharge Summary General Date of Admission February 02, 2020 at 15:23 Date of Discharge 02/03/2020 Discharge Summary PROCEDURES PERFORMED DURING STAY: [None]. ADMITTING DIAGNOSES / DISCHARGE DIAGNOSES: Weakness / Orthostatic dizziness - likely 2/2 dehydration and poor nutritional status, complicated by EtOH consumption Alcohol use disorder with dependence Foot drop - possibly 2/2 pressure on the common peroneal nerve (L4/5) s/p Lactic acidosis - likely 2/2 dehydration Chronically elevated liver enzymes - likely 2/2 alcohol hepatitis 2/2 alcohol abuse, unlikely 2/2 vital hepatitis HTN Macrocytic anemia - likely 2/2 ETOH use Depression / Fibromyalgia Morbid obesity GERD DVT prophylaxis COMPLICATIONS/CHIEF COMPLAINT: Weakness, dizziness and lightheadedness HISTORY OF PRESENT ILLNESS: Patient is a 89-year-old female with a past medical history of extensive alcohol use, depression, fibromyalgia, s/p Angie-en-Y (2009), GERD, who presented to the ER with complaints of weakness, dizziness and lightheadedness. Patient was admitted to hospitalist service for dehydration and suspected alco hol withdrawal. HOSPITAL COURSE: Weakness / Orthostatic dizziness - likely 2/2 dehydration and poor nutritional status, complicated by EtOH consumption - Clinically has improved - Negative orthostatic vital signs - CT head 02/02: No acute or concerning focal intracranial abnormality. - CXR 02/01: Elevated right hemidiaphragm. Otherwise no acute disease. - As progress with physical therapy and has been cleared for discharge home Alcohol use disorder with dependence - No evidence of withdrawal at this time - Patient has a significant history of alcohol abuse and drinks >2 L of wine daily, +Alcohol level elevated - CIWA protocol with symptom triggered Ativan - Cleared PT Foot drop - possibly 2/2 pressure on the common peroneal nerve (L4/5) - MRI lumbar spine 01/31: No acute or destructive process and no explanation for foot drop. No myelopathy changes of the cord and no evidence of cauda equina nerve root arachnoiditis Mild degenerative spinal canal stenosis and neural foraminal stenosis L4-L5 secondary to multifactorial degenerative change. Lower thoracic spine degenerative disc disease without neural compression - Duplex US L Leg 02/02: Negative sonography of the left popliteal fossa. No evidence of Shabazz's cyst. - Discussed case with Neurology; will have outpatient follow up for likely nerve conduction studies - Will have brace placed on left foot; has cleared PT s/p Lactic acidosis - likely 2/2 dehydration Chronically elevated liver enzymes - likely 2/2 alcohol hepatitis 2/2 alcohol abuse, unlikely 2/2 vital hepatitis - Has been trending down - Negative hepatitis profile in the past - Advised cessation from alcohol HTN - BP well controlled - c/w Metoprolol succinate with holding parameters Macrocytic anemia - likely 2/2 ETOH use - B12 / Folate within normal limits - Reticulocyte count within normal limits - Advised cessation from alcohol Depression / Fibromyalgia - Follows with Psychiatry as an outpatient - c/w Trazodone and Duloxetine Morbid obesity - s/p Angie-en-Y (2009) GERD - c/w Omeprazole DVT prophylaxis - c/w Heparin SQ DISCHARGE MEDICATIONS: Please see below. ALLERGIES: Please see below. PHYSICAL EXAMINATION ON DISCHARGE: Vitals (See below) General: Lying in bed, no acute distress, comfortable, AAOx3 HEENT: NC, AT CVS: +S1S2 Lungs: Fair air entry b/l, -w/r/r Abdomen: Soft, ND, NT Extremities: - Edema, - Calf tenderness LABORATORY DATA: Please see below. ACTIVITY: [As tolerated]. DISCHARGE PLAN: Follow up with primary care provider, psychiatry and neurology within 7 days Remain compliant with treatment plan and medications Return to the ER if you experience any problems DISPOSITION: Home DISCHARGE CONDITION: [Stable]. TIME SPENT ON DISCHARGE: 35 minutes Vital Signs/I&Os Vital Signs Date Time Temp Pulse Resp B/P (MAP) Pulse Ox O2 Delivery O2 Flow Rate FiO2 02/03/20 10:01 86 130/79 02/03/20 06:00 98.1 17 97 Room Air I&O- Last 24 Hours up to 6 AM 02/03/20 06:00 Intake Total 2905 ml Balance 2905 ml Laboratory Data Labs 24H Laboratory Tests 2 02/03/20 07:40: Immature Granulocyte % (Auto) 0.3, Neutrophils (%) (Auto) 62.5, Lymphocytes (%) (Auto) 22.9L, Monocytes (%) (Auto) 11.1H, Eosinophils (%) (Auto) 2.3, Basophils (%) (Auto) 0.9, Neutrophils # (Auto) 2.1, Lymphocytes # (Auto) 0.8L, Monocytes # (Auto) 0.4, Eosinophils # (Auto) 0.1, Basophils # (Auto) 0.0, Nucleated Red Blood Cells % (auto) 0.0, Anion Gap 5L, Glomerular Filtration Rate > 60.0, Calcium Level 8.4L, Magnesium Level 1.8, Total Bilirubin 1.2H, Aspartate Amino Transf (AST/SGOT) 117H, Alanine Aminotransferase (ALT/SGPT) 84H, Alkaline Phosphatase 94, Total Protein 5.4L, Albumin 2.5L, Albumin/Globulin Ratio 0.9L CBC/BMP Laboratory Tests 02/03/20 07:40 Discharge Medications Scheduled Duloxetine Hcl (Duloxetine HCl) 60 Mg Cap, 60 MG PO QPM, (Reported) Folic Acid (Folic Acid) 1 Mg Tablet, 1 MG PO DAILY Metoprolol Succinate (Metoprolol Succinate) 25 Mg Tab, 25 MG PO DAILY, (Reported) Multivitamin (Multivitamins) 1 Each Capsule, 1 CAP PO DAILY Thiamine Hcl (Vitamin B-1) 100 Mg Tablet, 100 MG PO DAILY Trazodone HCl (Trazodone HCl) 100 Mg Tablet, 100 MG PO QHS, (Reported) PATIENT STATES SOMETIMES TAKES 15OMG IF NEEDED Scheduled PRN Celecoxib (Celebrex) 200 Mg Capsule, 200 MG PO DAILY PRN for PAIN, (Reported) Diphenoxylate HCl/Atropine (Lomotil 2.5-0.025 mg Tablet) 1 Tab Tab, 1 TAB PO PRN PRN for DIARRHEA, (Reported) Lorazepam (Lorazepam) 0.5 Mg Tablet, 0.5 MG PO BID PRN for ANXIETY, (Reported) Omeprazole (Omeprazole) 40 Mg Cap, 40 MG PO BID PRN for INDIGESTION, (Reported) Ondansetron HCl (Ondansetron HCl) 4 Mg Tablet, 4 MG PO TID PRN for NAUSEA OR VOMITING, (Reported) Allergies Coded Allergies: hydromorphone (Verified Allergy, Severe, resp arrest, 02/01/20) TOMAS BANERJEE MD February 03, 2020 12:40
== END 2020-02-03 14:15 | disposition home or self-care (01) | DRG 641 ==
LOC: M ED 16:42 → M ED INP 22:42 → ENRESERV 02-02 00:28 → M MSPAV 02-02 00:59 → OBSVTOIN 02-02 15:23
PROVIDERS: ADMIT Internal Medicine; ATTEND Internal Medicine
DX: E86.0 Dehydration (principal); F10.20 Alcohol dependence, uncomplicated; E87.2 Acidosis; F32.9 Major depressive disorder, single episode, unspecified; M79.7 Fibromyalgia; E66.01 Morbid (severe) obesity due to excess calories; I10 Essential (primary) hypertension; M21.371 Foot drop, right foot; K21.9 Gastro-esophageal reflux disease without esophagitis; K70.10 Alcoholic hepatitis without ascites; D53.9 Nutritional anemia, unspecified; R42 Dizziness and giddiness; Z79.899 Other long term (current) drug therapy; Z88.8 Allergy status to other drugs, medicaments and biological substances; Z96.652 Presence of left artificial knee joint

== ENCOUNTER → 2020-02-16 | Outpatient (REF) | payer MEDICARE, OTHER ==
[~2020-02-16] MED LIST changes: +CELE1CAP4 PO; +LORA2CON5 PO; +MULTCAP PO; +ONDA-83 PO; +TRAZ-257 PO
[2020-02-16 17:46] LABS: FOLATE 9.6 NG/ML
== END ==
LOC: M LAB REF 16:18
PROVIDERS: ATTEND Nurse Practitioner Family
DX: R53.83 Other fatigue (principal); Z98.84 Bariatric surgery status

== ENCOUNTER → 2020-02-20 | Outpatient (CLI) | payer MEDICARE, OTHER ==
[2020-02-20 17:34] LABS: BASO % 0.7 % (0.0-1.0); EOS # 0.1 10^3/uL (0.0-0.5); EOS % 1.5 % (0.0-3.0); HEMATOCRIT 37.6 % (36.0-47.0); HEMOGLOBIN 11.8 g/dl (12.0-15.5); LYMPH # 1.4 10^3/uL (1.5-5.0); LYMPH % 23.7 % (24.0-44.0); MEAN CORPUSCULAR HEMOGLOBIN 34.1 pg (27.0-33.0); MEAN CORPUSCULAR HGB CONC 31.4 g/dl (32.0-36.5); MEAN CORPUSCULAR VOLUME 108.7 fl (80.0-96.0); MONO # 0.5 10^3/uL (0.0-0.8); NEUTROPHILS # 3.8 10^3/uL (1.5-8.5); NEUTROPHILS % 64.8 % (36.0-66.0); RED BLOOD COUNT 3.46 10^6/uL (4.00-5.40); WHITE BLOOD COUNT 5.9 10^3/uL (4.0-10.0)
[2020-02-20 18:01] LABS: ALT/SGPT 42 U/L (12-78); BILIRUBIN,TOTAL 0.5 MG/DL (0.2-1.0); BLOOD UREA NITROGEN 14 MG/DL (7-18); CALCIUM LEVEL 9.5 MG/DL (8.8-10.2); CARBON DIOXIDE LEVEL 27 MEQ/L (21-32); CHLORIDE LEVEL 105 MEQ/L (98-107); FOLATE > 24.0 NG/ML (>5.4); GLOMERULAR FILTRATION RATE > 60.0 (>39); GLUCOSE, FASTING 137 MG/DL (70-100); POTASSIUM SERUM 4.4 MEQ/L (3.5-5.1); RHEUMATOID FACTOR QUANT 25.8 IU/ML (<15.0); SODIUM LEVEL 140 MEQ/L (136-145); TOTAL PROTEIN 6.5 GM/DL (6.4-8.2); VITAMIN B12 LEVEL 457 PG/ML (247-911)
[2020-02-20 18:46] LABS: ERYTHROCYTE SEDIMENTATION RATE 50 mm/hr (0-30)
[2020-02-20 19:10] LABS: HEMOGLOBIN A1c 4.8 %
[2020-02-23 13:58] LABS: ALBUMIN 3.49 GM/DL (3.29-5.55); ALBUMIN % 53.7 % (55.8-66.1); ALPHA-1-GLOBULIN % 4.9 % (2.9-4.9); ALPHA-1-GLOBULINS 0.32 GM/DL (0.17-0.41); ALPHA-2-GLOBULINS 0.82 GM/DL (0.42-0.99); ALPHA-2-GLOBULINS % 12.6 % (7.1-11.8); BETA-1-GLOBULINS 0.42 GM/DL (0.28-0.60); BETA-1-GLOBULINS % 6.5 % (4.7-7.2); BETA-2-GLOBULINS 0.42 GM/DL (0.19-0.55); BETA-2-GLOBULINS % 6.4 % (3.2-6.5); GAMMA GLOBULIN % 15.9 % (11.1-18.8); GAMMA GLOBULINS 1.03 GM/DL (0.65-1.58)
[2020-02-28 21:26] LABS: ANCA-ATYPICAL <1:20 titer (Neg:<1:20); ANTINUCLEAR ANTIBODIES DIRECT Negative (Negative); CYTOPLASMIC NEUTROP AB ANCA-C <1:20 titer (Neg:<1:20); PERINUCLEAR AB ANCA-P <1:20 titer (Neg:<1:20); SJOGREN'S ANTI SS-A <0.2 AI (0.0-0.9); SJOGREN'S ANTI SS-B <0.2 AI (0.0-0.9); VITAMIN B1 LEVEL WHOLE BLOOD 256.8 nmol/L (66.5-200.0); VITAMIN B6,PYRIDOXAL PHOSPHATE 26.2 ug/L (2.0-32.8); VITAMIN E(ALPHA TOCOPHEROL) 7.6 mg/L (9.0-29.0); VITAMIN E(GAMMA TOCOPHEROL) 1.2 mg/L (0.5-4.9)
[2020-03-09 12:01] LABS: DRVV SCREEN 41.9 SEC
== END ==
LOC: M WUC 15:05
PROVIDERS: ATTEND Psychiatry & Neurology Neurology
DX: G62.9 Polyneuropathy, unspecified (principal); Z79.899 Other long term (current) drug therapy

== ENCOUNTER → 2020-05-18 | Outpatient (REF) | payer MEDICARE, OTHER ==
[2020-05-19 15:31] LABS: HEPATITIS A ANTIBODY IGM NEGATIVE (NEGATIVE); HEPATITIS B CORE ANTIBODY IGM NEGATIVE (NEGATIVE); HEPATITIS B SURFACE ANTIGEN NEGATIVE (NEGATIVE); HEPATITIS C VIRUS ABY INDEX 0.3 INDEX (<0.8)
== END ==
LOC: M LAB REF 09:32
PROVIDERS: ATTEND Internal Medicine
DX: R94.5 Abnormal results of liver function studies (principal)

== ENCOUNTER → 2021-10-03 | Outpatient (CLI) | payer MEDICARE, OTHER ==
[~2021-10-03] MED LIST changes: +ESCI10TA16; -ESCI10TA2; +OMEP40CA4; +OMEP40CA4 PO; -OMEP40CA97; -OMEP40CA97 PO
== END ==
LOC: M LABSMTC 13:18
PROVIDERS: ATTEND Pediatrics
DX: Z20.822 Contact with and (suspected) exposure to COVID-19 (principal)
CPT/HCPCS: C9803; U0003

== ENCOUNTER → 2021-10-27 | Outpatient (REF) | payer MEDICARE, OTHER ==
[2021-10-27 13:14] LABS: BACTERIA, URINE AUTO 1+ (NEGATIVE); CALCIUM OXALATE CRYSTALS MODERATE; MUCUS, URINE SMALL (NEGATIVE); RBC, URINE AUTO 66 /HPF (0-3); RENAL EPITHELIAL CELLS 1 /HPF; SQUAMOUS EPITHELIAL CELL UR AU 0 /HPF (0-6); WBC, URINE AUTO TNTC /HPF (0-3)
== END ==
LOC: M LAB REF 12:17
PROVIDERS: ATTEND Physician Assistant Medical
DX: N39.0 Urinary tract infection, site not specified (principal)

== ENCOUNTER → 2022-05-04 | Outpatient (REF) | payer MEDICARE, OTHER ==
[2022-05-04 17:18] LABS: FERRITIN 100 NG/ML (8-252)
[2022-05-05 15:47] LABS: VITAMIN B12 LEVEL 304 PG/ML (247-911)
== END ==
LOC: M LAB REF 16:18
PROVIDERS: ATTEND Internal Medicine
DX: Z98.84 Bariatric surgery status (principal)

== ENCOUNTER → 2022-06-01 | Outpatient (REF) | payer MEDICARE, OTHER ==
[2022-06-01 16:58] LABS: BACTERIA, URINE NONE SEEN; HYALINE CAST, URINE NONE SEEN /lpf (0-1); SQUAMOUS EPITHELIAL CELL URINE NONE SEEN /hpf (SMALL AMT); WBC, URINE NONE SEEN /hpf (0-3)
== END ==
LOC: M LAB REF 16:11
PROVIDERS: ATTEND Internal Medicine
DX: R31.9 Hematuria, unspecified (principal)

== ENCOUNTER → 2022-06-05 | Outpatient (CLI) | payer MEDICARE, OTHER | LOC: M RAD 15:55 | PROVIDERS: ATTEND Physician Assistant Medical | DX: R60.0 Localized edema (principal); M79.604 Pain in right leg ==

== ENCOUNTER → 2022-06-15 | Outpatient (CLI) | payer MEDICARE, OTHER | LOC: M WHC 13:07 | PROVIDERS: ATTEND Physician Assistant Medical | DX: R22.41 Localized swelling, mass and lump, right lower limb (principal); M79.604 Pain in right leg ==

== ENCOUNTER → 2022-06-30 | Outpatient (CLI) | payer MEDICARE, OTHER | LOC: M RAD 13:01 | PROVIDERS: ATTEND Physician Assistant Medical | DX: R60.0 Localized edema (principal); R09.89 Other specified symptoms and signs involving the circulatory and respiratory systems ==

== ENCOUNTER → 2022-07-18 | Outpatient (REF) | payer MEDICARE, OTHER ==
[2022-07-18 15:06] LABS: BACTERIA, URINE MOD AMOUNT; SQUAMOUS EPITHELIAL CELL URINE MOD AMOUNT /hpf (SMALL AMT)
== END ==
LOC: M LAB REF 14:03
PROVIDERS: ATTEND Internal Medicine
DX: R31.9 Hematuria, unspecified (principal); F10.20 Alcohol dependence, uncomplicated; G62.9 Polyneuropathy, unspecified; Z98.84 Bariatric surgery status

== ENCOUNTER → 2022-07-28 | Outpatient (CLI) | payer MEDICARE, OTHER ==
[~2022-07-28] MED LIST changes: +GASTROGRAFIN SOLUTION 30ML As Ordered ONE; +ISOVUE-370 76% 100ML VIAL As Ordered ONE
== END ==
LOC: M RAD 16:24
PROVIDERS: ATTEND Internal Medicine
DX: R60.9 Edema, unspecified (principal)
CPT/HCPCS: 74178; Q9963; Q9967

== ENCOUNTER → 2023-01-19 | Outpatient (CLI) | payer MEDICARE, OTHER ==
[~2023-01-19] MED LIST changes: -GASTROGRAFIN SOLUTION 30ML As Ordered ONE; -ISOVUE-370 76% 100ML VIAL As Ordered ONE
[2023-01-19 12:21] LABS: BLOOD UREA NITROGEN 17 MG/DL (9-23); CALCIUM LEVEL 9.6 MG/DL (8.3-10.6); CARBON DIOXIDE LEVEL 31 MMOL/L (20-31); CHLORIDE LEVEL 102 MMOL/L (98-107); CREATININE FOR GFR 0.76 MG/DL (0.55-1.30); GLOMERULAR FILTRATION RATE > 60.0 (>39); GLUCOSE, FASTING 110 MG/DL (74-106); POTASSIUM SERUM 4.6 MMOL/L (3.5-5.1); SODIUM LEVEL 136 MMOL/L (136-145)
== END ==
LOC: M LAB 10:32
PROVIDERS: ATTEND Internal Medicine Clinical Cardiac Electrophysiology
DX: I48.0 Paroxysmal atrial fibrillation (principal)

== ENCOUNTER → 2023-01-21 | Outpatient (CLI) | payer MEDICARE, OTHER ==
[2023-01-21 15:00] LABS: BASO % 0.5 % (0.0-1.0); EOS # 0.1 10^3/uL (0.0-0.5); EOS % 1.6 % (0.0-3.0); HEMATOCRIT 42.6 % (36.0-47.0); HEMOGLOBIN 13.8 g/dl (12.0-15.5); LYMPH # 1.7 10^3/uL (1.5-5.0); LYMPH % 26.9 % (24.0-44.0); MEAN CORPUSCULAR HEMOGLOBIN 35.8 pg (27.0-33.0); MEAN CORPUSCULAR HGB CONC 32.4 g/dl (32.0-36.5); MEAN CORPUSCULAR VOLUME 110.6 fl (80.0-96.0); MONO # 0.6 10^3/uL (0.0-0.8); NEUTROPHILS # 3.8 10^3/uL (1.5-8.5); NEUTROPHILS % 60.5 % (36.0-66.0); RED BLOOD COUNT 3.85 10^6/uL (4.00-5.40); WHITE BLOOD COUNT 6.3 10^3/uL (4.0-10.0)
== END ==
LOC: M LAB 14:29
PROVIDERS: ATTEND Internal Medicine Clinical Cardiac Electrophysiology
DX: I48.0 Paroxysmal atrial fibrillation (principal)

== ENCOUNTER → 2023-03-14 | Outpatient (CLI) | payer MEDICARE, OTHER ==
[2023-03-14 19:54] LABS: BASO % 0.6 % (0.0-1.0); EOS # 0.1 10^3/uL (0.0-0.5); EOS % 1.1 % (0.0-3.0); HEMOGLOBIN 14.4 g/dl (12.0-15.5); LYMPH # 1.4 10^3/uL (1.5-5.0); LYMPH % 22.7 % (24.0-44.0); MEAN CORPUSCULAR HEMOGLOBIN 34.4 pg (27.0-33.0); MEAN CORPUSCULAR VOLUME 107.7 fl (80.0-96.0); MONO # 0.7 10^3/uL (0.0-0.8); MONO % 11.6 % (2.0-8.0); NEUTROPHILS % 63.7 % (36.0-66.0); RED BLOOD COUNT 4.18 10^6/uL (4.00-5.40); WHITE BLOOD COUNT 6.3 10^3/uL (4.0-10.0)
[2023-03-14 20:11] LABS: FREE T4 0.85 NG/DL (0.89-1.76); THYROID STIMULATING HORMONE 1.162 uIU/ML (0.55-4.78)
[2023-03-14 20:20] LABS: ALBUMIN 3.6 G/DL (3.2-5.2); ALKALINE PHOSPHATASE 94 U/L (46-116); ALT/SGPT 23 U/L (7.0-40); AST/SGOT 28 U/L (<34); BILIRUBIN,TOTAL 0.6 MG/DL (0.3-1.2); BLOOD UREA NITROGEN 20 MG/DL (9-23); CALCIUM LEVEL 10.3 MG/DL (8.3-10.6); CARBON DIOXIDE LEVEL 29 MMOL/L (20-31); CHLORIDE LEVEL 101 MMOL/L (98-107); CREATININE FOR GFR 0.73 MG/DL (0.55-1.30); GLOMERULAR FILTRATION RATE > 60.0 (>39); GLUCOSE, FASTING 87 MG/DL (74-106); POTASSIUM SERUM 4.5 MMOL/L (3.5-5.1); SODIUM LEVEL 137 MMOL/L (136-145); TOTAL PROTEIN 7.2 G/DL (5.7-8.2)
== END ==
LOC: M WUC 15:13
PROVIDERS: ATTEND Anesthesiology Pain Medicine
DX: I48.0 Paroxysmal atrial fibrillation (principal)

== ENCOUNTER → 2023-04-18 | Outpatient (REF) | payer MEDICARE, OTHER | LOC: M LAB REF 19:57 | PROVIDERS: ATTEND Student in an Organized Health Care Education/Training Program | DX: R30.0 Dysuria (principal) ==

== ENCOUNTER → 2023-05-07 | Outpatient (REF) | payer MEDICARE, OTHER ==
[2023-05-07 19:01] LABS: FERRITIN 88.4 NG/ML (7.3-270.7); FOLATE 3.7 NG/ML (>5.4)
== END ==
LOC: M LAB REF 16:32
PROVIDERS: ATTEND Internal Medicine
DX: Z98.84 Bariatric surgery status (principal); D50.9 Iron deficiency anemia, unspecified

== ENCOUNTER → 2023-07-18 | Outpatient (REF) | payer MEDICARE, OTHER ==
[2023-07-18 14:26] LABS: VITAMIN B12 LEVEL 2000 PG/ML (211-911)
[2023-07-18 14:27] LABS: FOLATE > 24.0 NG/ML (>5.4)
== END ==
LOC: M LAB REF 12:21
PROVIDERS: ATTEND Internal Medicine
DX: Z98.84 Bariatric surgery status (principal)

== ENCOUNTER → 2024-01-21 | Outpatient (REF) | payer MEDICARE, OTHER ==
[2024-01-21 13:57] LABS: FOLATE 5.6 NG/ML (>5.4)
== END ==
LOC: M LAB REF 12:48
PROVIDERS: ATTEND Internal Medicine
DX: Z98.84 Bariatric surgery status (principal)

== ENCOUNTER → 2024-03-17 | Outpatient (REF) ==
[2024-03-17 15:26] LABS: HEMOGLOBIN 12.5 g/dl (12.0-15.5); MEAN CORPUSCULAR HEMOGLOBIN 34.7 pg (27.0-33.0); MEAN CORPUSCULAR HGB CONC 32.1 g/dl (32.0-36.5); MEAN CORPUSCULAR VOLUME 108.3 fl (80.0-96.0); WHITE BLOOD COUNT 9.5 10^3/uL (4.0-10.0)
[2024-03-17 15:46] LABS: ALBUMIN 2.7 G/DL (3.2-5.2); ALKALINE PHOSPHATASE 131 U/L (46-116); ALT/SGPT 40 U/L (7.0-40); AST/SGOT 55 U/L (<34); BILIRUBIN,DIRECT 0.7 MG/DL (<0.4); BILIRUBIN,TOTAL 1.2 MG/DL (0.3-1.2); BLOOD UREA NITROGEN 15 MG/DL (9-23); CALCIUM LEVEL 9.8 MG/DL (8.3-10.6); CARBON DIOXIDE LEVEL 30 MMOL/L (20-31); CHLORIDE LEVEL 99 MMOL/L (98-107); CREATININE FOR GFR 0.64 MG/DL (0.55-1.30); GLOMERULAR FILTRATION RATE > 60.0 (>39); GLUCOSE, FASTING 126 MG/DL (74-106); MAGNESIUM LEVEL 1.6 MG/DL (1.8-2.4); POTASSIUM SERUM 3.5 MMOL/L (3.5-5.1); SODIUM LEVEL 135 MMOL/L (136-145); TOTAL PROTEIN 6.3 G/DL (5.7-8.2)
== END ==
PROVIDERS: ATTEND Internal Medicine
DX: R53.83 Other fatigue (principal)

== ENCOUNTER → 2024-03-28 | Outpatient (REF) ==
[2024-03-28 10:47] LABS: HEMATOCRIT 43.1 % (36.0-47.0); HEMOGLOBIN 13.9 g/dl (12.0-15.5); MEAN CORPUSCULAR HEMOGLOBIN 34.5 pg (27.0-33.0); MEAN CORPUSCULAR HGB CONC 32.3 g/dl (32.0-36.5); MEAN CORPUSCULAR VOLUME 106.9 fl (80.0-96.0); PLATELET COUNT, AUTOMATED 108 10^3/uL (150-450); RED BLOOD COUNT 4.03 10^6/uL (4.00-5.40)
[2024-03-28 11:09] LABS: ALBUMIN 2.6 G/DL (3.2-5.2); ALKALINE PHOSPHATASE 109 U/L (46-116); ALT/SGPT 21 U/L (7.0-40); AST/SGOT 44 U/L (<34); BILIRUBIN,DIRECT 0.3 MG/DL (<0.4); BILIRUBIN,TOTAL 0.6 MG/DL (0.3-1.2); BLOOD UREA NITROGEN 13 MG/DL (9-23); CALCIUM LEVEL 9.8 MG/DL (8.3-10.6); CARBON DIOXIDE LEVEL 29 MMOL/L (20-31); CHLORIDE LEVEL 102 MMOL/L (98-107); CREATININE FOR GFR 0.63 MG/DL (0.55-1.30); GLOMERULAR FILTRATION RATE > 60.0 (>39); GLUCOSE, FASTING 130 MG/DL (74-106); POTASSIUM SERUM 3.5 MMOL/L (3.5-5.1); SODIUM LEVEL 139 MMOL/L (136-145); TOTAL PROTEIN 6.3 G/DL (5.7-8.2)
== END ==
PROVIDERS: ATTEND Internal Medicine
DX: R74.01 Elevation of levels of liver transaminase levels (principal)

== ENCOUNTER → 2024-04-10 | Outpatient (REF) ==
[2024-04-10 18:49] LABS: HEMATOCRIT 40.2 % (36.0-47.0); HEMOGLOBIN 12.6 g/dl (12.0-15.5); MEAN CORPUSCULAR HEMOGLOBIN 34.2 pg (27.0-33.0); MEAN CORPUSCULAR HGB CONC 31.3 g/dl (32.0-36.5); MEAN CORPUSCULAR VOLUME 109.2 fl (80.0-96.0); RED BLOOD COUNT 3.68 10^6/uL (4.00-5.40); WHITE BLOOD COUNT 6.3 10^3/uL (4.0-10.0)
[2024-04-10 19:14] LABS: ALBUMIN 2.5 G/DL (3.2-5.2); ALKALINE PHOSPHATASE 93 U/L (46-116); ALT/SGPT 18 U/L (7.0-40); AST/SGOT 34 U/L (<34); BILIRUBIN,DIRECT 0.2 MG/DL (<0.4); BILIRUBIN,TOTAL 0.3 MG/DL (0.3-1.2); BLOOD UREA NITROGEN 15 MG/DL (9-23); CALCIUM LEVEL 8.9 MG/DL (8.3-10.6); CARBON DIOXIDE LEVEL 29 MMOL/L (20-31); CHLORIDE LEVEL 102 MMOL/L (98-107); CREATININE FOR GFR 0.65 MG/DL (0.55-1.30); GLOMERULAR FILTRATION RATE > 60.0 (>39); GLUCOSE, FASTING 73 MG/DL (74-106); POTASSIUM SERUM 3.7 MMOL/L (3.5-5.1); SODIUM LEVEL 140 MMOL/L (136-145)
== END ==
PROVIDERS: ATTEND Internal Medicine
DX: Z79.899 Other long term (current) drug therapy (principal)

== ENCOUNTER → 2024-05-23 | Outpatient (REF) | payer MEDICARE, OTHER | LOC: M LAB REF 16:25 | PROVIDERS: ATTEND Internal Medicine | DX: R29.6 Repeated falls (principal); R53.83 Other fatigue; Z98.84 Bariatric surgery status ==

== ENCOUNTER → 2024-07-02 | Outpatient (REF) | payer MEDICARE, OTHER | LOC: M LAB REF 10:36 | PROVIDERS: ATTEND Internal Medicine | DX: R19.7 Diarrhea, unspecified (principal) ==

== ENCOUNTER → 2025-01-12 | Outpatient (REF) | payer MEDICARE, OTHER ==
[~2025-01-12] MED LIST changes: -AMBI10TA PO; +ZOLP-533 PO
[2025-01-12 12:25] LABS: INR 0.95; PARTIAL THROMBOPLASTIN TIME 30.2 SECONDS (24.8-34.2)
== END ==
LOC: M LAB REF 12:01
PROVIDERS: ATTEND Internal Medicine
DX: F10.21 Alcohol dependence, in remission (principal); Z79.01 Long term (current) use of anticoagulants

== ENCOUNTER → 2025-04-03 | Outpatient (REF) | payer MEDICARE, OTHER ==
[~2025-04-03] MED LIST changes: +ASPI81TA26 PO; +BUPR-766 PO; +CLOP75TA2 PO; +DILT120C89 PO; +PROT1TAB2 PO; +SUCR1ORA20 PO; +THERTAB52 PO; +THIA100T7 PO; +TUMS500C PO
[2025-04-03 17:49] LABS: APPEARANCE, URINE CLOUDY (CLEAR); BACTERIA, URINE AUTO NEGATIVE (NEGATIVE); BILIRUBIN, URINE AUTO NEGATIVE (NEGATIVE); BLOOD, URINE BLOOD NEGATIVE (NEGATIVE); CALCIUM OXALATE CRYSTALS MODERATE; GLUCOSE, URINE (UA) AUTO 1+ mg/dL (NEGATIVE); KETONE, URINE AUTO NEGATIVE (NEGATIVE); LEUKOCYTE ESTERASE, URINE AUTO 3+ (NEGATIVE); MUCUS, URINE SMALL (NEGATIVE); NITRITE, URINE AUTO NEGATIVE (NEGATIVE); PROTEIN, URINE AUTO NEGATIVE (NEGATIVE); RBC, URINE AUTO 4 /HPF (0-3); SPECIFIC GRAVITY URINE AUTO 1.023 (1.002-1.035); SQUAMOUS EPITHELIAL CELL UR AU 1 /HPF (0-6); TRANSITIONAL EPITHELIAL AUTO <1 /HPF; UROBILINOGEN, URINE AUTO 2.0 mg/dL (0.0-2.0); WBC, URINE AUTO TNTC /HPF (0-3)
== END ==
LOC: M LAB REF 16:57
PROVIDERS: ATTEND Physician Assistant
DX: N39.0 Urinary tract infection, site not specified (principal)

== ENCOUNTER → 2025-04-13 | Outpatient (REF) | payer MEDICARE, OTHER | LOC: M LAB REF 14:21 | PROVIDERS: ATTEND Internal Medicine | DX: D50.9 Iron deficiency anemia, unspecified (principal) ==

== ENCOUNTER → 2025-04-15 | Outpatient (REF) | payer MEDICARE, OTHER | LOC: M LAB REF 17:50 | PROVIDERS: ATTEND Internal Medicine | DX: N39.0 Urinary tract infection, site not specified (principal) ==

== ENCOUNTER → 2025-05-26 | Outpatient (CLI) | payer MEDICARE, OTHER ==
[~2025-05-26] MED LIST changes: +ZOLP10TA11; -ZOLP10TA2
[2025-05-26 19:47] LABS: IRON (FE) 50.0 UG/DL (50-170); PERCENT SATURATION 11.9 % (13.2-45.0)
== END ==
LOC: M WUC 12:27
PROVIDERS: ATTEND Nurse Practitioner Family
DX: K21.9 Gastro-esophageal reflux disease without esophagitis (principal); K22.10 Ulcer of esophagus without bleeding; Z86.0109 Personal history of other colon polyps; K59.1 Functional diarrhea; D50.9 Iron deficiency anemia, unspecified

== ENCOUNTER → 2025-06-15 | Outpatient (REF) | payer MEDICARE, OTHER ==
[2025-06-15 15:12] LABS: LDH LACTATE DEHYDROGENASE 201 U/L (120-246)
[2025-06-15 15:24] LABS: RHEUMATOID FACTOR QUANT 287.3 IU/ML (<14); VITAMIN B12 LEVEL > 2000 PG/ML (211-911)
[2025-06-17 02:17] LABS: PROTEIN, TOTAL SO 6.9 g/dL (6.1-8.1)
[2025-06-18 07:52] LABS: ALBUMIN SO 3.7 g/dL (3.8-4.8); ALPHA 1 GLOBULINS SO 0.3 g/dL (0.2-0.3); ALPHA 2 GLOBULINS SO 0.9 g/dL (0.5-0.9); BETA 2 GLOBULIN SO 0.4 g/dL (0.2-0.5); BETA GLOBULIN SO 0.5 g/dL (0.4-0.6); GAMMA GLOBULINS SO 1.1 g/dL (0.8-1.7)
[2025-06-18 11:05] LABS: DRVV SCREEN 29.8 SECONDS
[2025-06-18 11:07] LABS: PTT LUPUS TYPE ANTICOAG SCREEN 0.78 (0-1.20)
[2025-06-18 20:32] LABS: VITAMIN E(ALPHA TOCOPHEROL) 13.5 mg/L (5.7-19.9); VITAMIN E(GAMMA TOCOPHEROL) < 1.0 mg/L (<=4.3)
== END ==
LOC: M LAB REF 13:55
PROVIDERS: ATTEND Internal Medicine
DX: D50.9 Iron deficiency anemia, unspecified (principal); I48.91 Unspecified atrial fibrillation; G62.9 Polyneuropathy, unspecified

== ENCOUNTER → 2025-07-30 | Outpatient (CLI) | payer MEDICARE, OTHER | LOC: M SOG 07:41 | PROVIDERS: ATTEND Neuromusculoskeletal Medicine, Sports Medicine | DX: M25.551 Pain in right hip (principal) ==

== ENCOUNTER 2025-08-15 14:03 | Emergency (ER) | payer MEDICARE, OTHER ==
[~2025-08-15] VITALS: Ht 167.6 cm; Wt 86.4 kg
[2025-08-15 14:20] VITALS: TEMP 98.1
[2025-08-15] MEDS ORDERED: ISOVUE-370 76% 100 ML VIAL As Ordered ONE (15:27)
[2025-08-15 15:28] LABS: ALT/SGPT 15.0 U/L (7.0-40); AST/SGOT 22.0 U/L (<34); CK-MB VALUE MASS 5.2 NG/ML (<3.6); CPK CREATINE PHOSPHOKINASE 121.0 U/L (34-145); INR 0.97; MB/CK RELATIVE INDEX 4.29 (< OR =4)
[2025-08-15 15:45] LABS: BASO # 0.1 10^3/uL (0.0-0.2); BASO % 0.7 % (0.0-1.0); EOS # 0.1 10^3/uL (0.0-0.5); EOS % 1.3 % (0.0-3.0); LYMPH # 1.3 10^3/uL (1.5-5.0); LYMPH % 17.0 % (24.0-44.0); MONO # 0.5 10^3/uL (0.0-0.8); MONO % 6.8 % (2.0-8.0); NEUTROPHILS # 5.6 10^3/uL (1.5-8.5); NEUTROPHILS % 73.7 % (36.0-66.0)
[2025-08-15] MEDS: KETOROLAC 30 MG/ML 1 ML VIAL IV ONE (16:30)
[2025-08-15 16:56] LABS: APPEARANCE, URINE CLEAR (CLEAR); BACTERIA, URINE AUTO NEGATIVE (NEGATIVE); BILIRUBIN, URINE AUTO NEGATIVE (NEGATIVE); BLOOD, URINE BLOOD NEGATIVE (NEGATIVE); GLUCOSE, URINE (UA) AUTO NEGATIVE (NEGATIVE); KETONE, URINE AUTO NEGATIVE (NEGATIVE); LEUKOCYTE ESTERASE, URINE AUTO NEGATIVE (NEGATIVE); MUCUS, URINE SMALL (NEGATIVE); NITRITE, URINE AUTO NEGATIVE (NEGATIVE); PROTEIN, URINE AUTO NEGATIVE (NEGATIVE); RBC, URINE AUTO 2 /HPF (0-3); SPECIFIC GRAVITY URINE AUTO 1.041 (1.002-1.035); SQUAMOUS EPITHELIAL CELL UR AU 1 /HPF (0-6); UROBILINOGEN, URINE AUTO 2.0 mg/dL (0.0-2.0); WBC, URINE AUTO 0 /HPF (0-3)
[2025-08-15 17:16] VITALS: BP 117/67
[2025-08-15] MEDS ORDERED: HYDR-3713 PO (17:59)
[2025-08-15 18:03] VITALS: O2SAT 98
[2025-08-15 18:04] LABS: PLTBLUE- EDTA FREE CALC 176 K/mm3 (172-450)
[2025-08-15 18:06] LABS: PLTBLUE- EDTA FREE MACHINE 160 10^3/uL (172-450)
[2025-08-15] MEDS: NORCO 5/325MG TABLET (HOME DOSE PACK) PO ONE (18:15)
[2025-08-15 18:51] LABS: PLATELET CHECK? YES (YES)
== END 2025-08-15 18:27 | disposition home or self-care (01) ==
LOC: M ED 14:03 → EDBD 14:03 → M ED 18:27
DX: S80.11XA Contusion of right lower leg, initial encounter (principal); S20.01XA Contusion of right breast, initial encounter; V49.50XA Passenger injured in collision with unspecified motor vehicles in traffic accident, initial encounter; F10.10 Alcohol abuse, uncomplicated; I70.0 Atherosclerosis of aorta; K44.9 Diaphragmatic hernia without obstruction or gangrene; D18.03 Hemangioma of intra-abdominal structures; N28.1 Cyst of kidney, acquired; M50.30 Other cervical disc degeneration, unspecified cervical region; M25.78 Osteophyte, vertebrae; M51.360 Other intervertebral disc degeneration, lumbar region with discogenic back pain only; K57.30 Diverticulosis of large intestine without perforation or abscess without bleeding; Z98.84 Bariatric surgery status; Z88.8 Allergy status to other drugs, medicaments and biological substances; Z79.1 Long term (current) use of non-steroidal anti-inflammatories (NSAID); Z79.899 Other long term (current) drug therapy; Y92.410 Unspecified street and highway as the place of occurrence of the external cause; Y93.89 Activity, other specified; Y99.9 Unspecified external cause status
CPT/HCPCS: 70450; 70486; 71045; 71260; 72125; 72128; 72131; 73590; 74177; 80047; 80076; 81001; 82150; 82550; 82553; 83605; 83690; 84484; 85025; 85027; 85049; 85610; 85730; 86850; 86900; 86901; 93041; 94760; 96374; 99285; J1885; Q9967